=== PATIENT | female | born 1935 | race Caucasian/White ===

== ENCOUNTER 2016-11-25 12:12 | Emergency (ER) | payer OTHER ==
[~2016-11-25 12:12] MED LIST: ACCUPRIL40 MG PO; AMBIEN5 MG PO; AMLODIPINE BESYL5 MG PO; ASPIRIN EC325 MG PO; CALCIUM + D600 MG PO; COREG25 MG PO; COZAAR50 MG PO; DUONEB IN; HYDROCHLOROTHIA50 MG PO; LIPITOR40 MG PO; MULTIPLE VITAMIN PO; NEBULIZER IN; NORCO1 TA1 PO; O2 IN; TRAZODONE HCL50 MG PO; XALATAN0.005 % OP; ZANTAC 150 MAX150 MG PO; ZITHROMAX500 MG PO
--- NOTE | 2016-11-25 13:38 | DIAGNOSTIC IMAGING REPORT ---
PROCEDURE: XR CHEST 1 VIEW INDICATION: SHORTNESS OF BREATH TECHNIQUE: Portable AP view 12:49 p.m. COMPARISON: None. FINDINGS: Lungs are clear. Mild cardiomegaly. Thorax is normal. IMPRESSION: 1. Mild cardiomegaly. No acute infiltrates.
--- NOTE | 2016-11-25 15:23 | ED NURSING NOTES ---
Clinical Report - Nurses [facility] [address] [place] [address] 11/25/2016 12:13 Patient: ALEJANDRA DUNN TRIAGE Triage time 12:20. Acuity: LEVEL 3. Chief Complaint: (Light headed, Sob, lots of stress, family member dying at home.). Alert. No acute distress. BJ COMA SCORE: [place] Coma Scale: 15- eyes open spontaneously (4); best verbal response- oriented x 4 (5); best motor response- obeys commands (6). --12:33 Daina Isaac R.N. 12:20 11/25/16. BP: 157/56. HR: 74. RR: 19. O2 saturation: 95%. Temp: 98 F. Pain level now: 0/10. --12:33 Daina Isaac R.N. 12:20 11/25/16. BP: 157/56. HR: 74. RR: 19. O2 saturation: 95%. Temp: 98 F. Pain level now: 0/10. --12:35 Daina Isaac R.N. Weight: 67.1 kg stated. Height/Length: 64 inches Per Patient. BMI: 25.4. --12:31 Daina Isaac R.N. Medications AmLODIPine Besylate Oral 10 mg. Atorvastatin Calcium Oral 40 mg, at bedtime. Carvedilol Oral (Tablet 25 mg) 1 tablet, bid. Hydrocodone-Acetaminophen Oral 5 mg, 4x a day as needed. --12:24 Daina Isaac R.N. TraZODone HCl Oral 50-150mg at hs . --12:27 Daina Isaac R.N. Quinapril HCl Oral 40 mg, daily. --12:27 Daina Isaac R.N. Medication/allergy information source: the patient and patient's family. --12:33 Daina Isaac R.N. Allergies Penicillin. --12:24 Daina Isaac R.N. History Arrived by private vehicle. Historian: patient. Accompanied by family. Primary physician (leidy). Onset. (2 days ago). She has had weakness. 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 PAST MEDICAL HX: The patient is post-menopausal. SOCIAL HX: Smoker- current status unknown. Alcohol use; consumes one glass of wine. No drug use. FALL RISK ASSESSMENT: Fall risk assessment completed. No fall risk identified. NUTRITIONAL RISK ASSESSMENT: The nutritional risk assessment revealed no deficiencies. FUNCTIONAL ASSESSMENT: Functional assessment: no impairments noted. LEARNING NEEDS ASSESSMENT: The learning needs assessment revealed no barriers. SKIN INTEGRITY ASSESSMENT: Skin integrity risk assessment completed. No skin integrity risk identified. --12:33 Daina Isaac R.N. PROBLEMS: Dizzy. Heart rate 37. Hemorrhoids. Pneumonia. UTI - Urinary Tract Infection. Reflux. Sprain. Glaucoma. Hyperlipidemia. Tetanus Status. Acute Pain. Back Pain. Hypertension. Immunizations. --12:29 Daina Isaac R.N. ADDITIONAL SURGERIES: Ankle repair. Endartorectomy. --12:29 Daina Isaac R.N. Interventions ID band on patient. To room. --12:33 Daina Isaac R.N. PHYSICAL ASSESSMENT Ambulatory to room. Patient gowned. GENERAL / NEURO / PSYCH: Alert. Oriented X 4. Appears in no acute distress. HEENT: Mucous membranes are pink. RESPIRATORY: Respirations not labored. CVS: Cardiac rhythm: unifocal PVCs (72). Capillary refill less than 2 seconds. GI / : Abdomen nontender. SKIN: Skin intact. Skin is warm and dry. Normal skin turgor. --12:36 Daina Isaac R.N. NURSING PROGRESS NOTES nuclear monitoring technician, pulse oximeter and NIBP monitor placed on patient; manager cardiac- Lead II; monitor alarms on. Patient gowned. Head of bed elevated. Two patient identifiers checked. Call light placed in reach. Side rails up x 2. Bed placed in lowest position. Brakes of bed on. Patient ready for evaluation. --12:37 Daina Isaac R.N. EKG time: (1704). EKG was ordered, performed by a tech and shown to the ED physician. --12:58 Shawna Singer ER Tech1 13:00 11/25/2016 Site #1 started via IV in the right antecubital space with an 20g angiocath, with aseptic technique and good blood return; one attempt. Blood drawn: rainbow set. Labeled in the presence of the patient and sent to the lab. Saline lock flushed with 10 mL saline. --13:13 Daina Isaac R.N. 15:10 11/25/2016 Lasix IVP 20 mg given over 1 minute(s) via site #1. Allergies verified and confirmed 5 rights. IV patency established. IV site checked: no pain, redness, or swelling. IV flushed thoroughly pre- and post-medication administration. IVP given by RN. --16:13 Daina Isaac R.N. Locked/Released at 11/25/2016 17:13 by Daina Isaac R.N.
--- NOTE | 2016-11-25 15:23 | ED ORDER SUMMARY ---
..... Patient: ALEJANDRA DUNN OrderSheet [facility] VisitID: [id number] [place] [address] 81y, F Registration Date/Time: 11/25/2016 ORDER SHEET Weight: 67.1 kg (stated) Allergies: Penicillin GENERAL ORDERS: Chest 1V Urgent (12:48 11/25/2016 Rony MONIQUE) (Ack 12:57 SCouse ER Tech1) (13:14 SRoberts R.N.) Crystal Slicer (Continuous) (12:48 11/25/2016 Rony MONIQUE) (13:13 SRoberts R.N.) CBC w Diff Urgent (12:49 11/25/2016 Rony MONIQUE) (Ack 12:57 SCouse ER Tech1) (13:13 SRoberts R.N.) CMP Urgent (12:49 11/25/2016 Rony MONIQUE) (Ack 12:57 SCouse ER Tech1) (13:13 SRoberts R.N.) UA-Culture if indicated Urgent (12:49 11/25/2016 Rony MONIQUE) (Ack 12:57 [email or web address] ER Tech1) (15:09 SRoberts R.N.) PT with INR Urgent (12:49 11/25/2016 Rony MONIQUE) (Ack 12:57 SCouse ER Tech1) (13:13 SRoberts R.N.) PTT Urgent (12:49 11/25/2016 Rony MONIQUE) (Ack 12:57 [email or web address] ER [email or web address]) (13:13 SRoberts R.N.) Amylase Urgent (12:49 11/25/2016 Rony MONIQUE) (Ack 12:57 [email or web address] ER [email or web address]) (13:13 SRoberts R.N.) Lipase Urgent (12:49 11/25/2016 Rony MONIQUE) (Ack 12:57 SCouse ER TechCira) (13:13 SRoberts R.N.) CPK Urgent (12:49 11/25/2016 Rony MONIQUE) (Ack 12:57 SCouse ER Tech1) (13:13 SRoberts R.N.) Troponin-I Urgent (12:49 11/25/2016 Rony MONIQUE) (Ack 12:57 NHouse ER Tech1) (13:13 Shirley R.N.) TSH Urgent (12:49 11/25/2016 Rony MONIQUE) (Ack 12:57 NHouse ER Tech1) (13:13 Shirley R.N.) BNP Urgent (12:49 11/25/2016 Rony MONIQUE) (Ack 12:57 NHouse ER Tech1) (13:13 Shirley R.N.) Oxygen (2 L/min) (NC) (12:49 11/25/2016 Rony MONIQUE) (13:13 Shirley R.N.) Pulse oximeter (12:49 11/25/2016 Rony MONIQUE) (13:13 Shirley Stoner.N.) EKG - ER Stat (12:49 11/25/2016 Rony MONIQUE) (12:57 LNations ER Tech1) MEDICATION ORDERS: IV FLUIDS: IV Saline Lock (12:49 11/25/2016 Rony MONIQUE) (13:13 SRangel R.N.) Lasix IV 20 mg (NOW) (15:03 11/25/2016 Rony MONIQUE) (16:13 Shirley Stoner.Hoang) ORDER SHEET NOTES: [Electronically signed by Karlo Zambrano MD (16:45 11/25/2016)] [Electronically signed by Daina Isaac R.N. (17:13 11/25/2016)] [Electronically locked/signed by Daina Isaac R.N. (17:13 11/25/2016)]
--- NOTE | 2016-11-25 15:23 | ED ORDER SUMMARY ---
..... Patient: ALEJANDRA DUNN OrderSheet [facility] VisitID: [id number] [place] [address] 81y, F Registration Date/Time: 11/25/2016 ORDER SHEET Weight: 67.1 kg (stated) Allergies: Penicillin GENERAL ORDERS: Chest 1V Urgent (12:48 11/25/2016 Rony MONIQUE) (Ack 12:57 RIouse ER Tech1) (13:14 SRoberts R.N.) Composition Roll Maker And Cutter (Continuous) (12:48 11/25/2016 Rony MONIQUE) (13:13 SRoberts R.N.) CBC w Diff Urgent (12:49 11/25/2016 Rony MONIQUE) (Ack 12:57 RIouse ER Tech1) (13:13 SRoberts R.N.) CMP Urgent (12:49 11/25/2016 Rony MONIQUE) (Ack 12:57 RIouse ER Tech1) (13:13 SRoberts R.N.) UA-Culture if indicated Urgent (12:49 11/25/2016 Rony MONIQUE) (Ack 12:57 SABIAouse ER Tech1) (15:09 SRoberts R.N.) PT with INR Urgent (12:49 11/25/2016 Rony MONIQUE) (Ack 12:57 RIouse ER Tech1) (13:13 SRoberts R.N.) PTT Urgent (12:49 11/25/2016 Rony MONIQUE) (Ack 12:57 SABIAouse ER Tech1) (13:13 SRoberts R.N.) Amylase Urgent (12:49 11/25/2016 Rony MONIQUE) (Ack 12:57 SABIAouse ER Tech1) (13:13 SRoberts R.N.) Lipase Urgent (12:49 11/25/2016 Rony MONIQUE) (Ack 12:57 RIouse ER TechCira) (13:13 SRoberts R.N.) CPK Urgent (12:49 11/25/2016 Rony MONIQUE) (Ack 12:57 RIouse ER Tech1) (13:13 SRoberts R.N.) Troponin-I Urgent (12:49 11/25/2016 Rony MONIQUE) (Ack 12:57 NHouse ER Tech1) (13:13 Shirley R.N.) TSH Urgent (12:49 11/25/2016 Rony MONIQUE) (Ack 12:57 NHouse ER Tech1) (13:13 Shirley R.N.) BNP Urgent (12:49 11/25/2016 Rony MONIQUE) (Ack 12:57 NHouse ER Tech1) (13:13 Shirley R.N.) Oxygen (2 L/min) (NC) (12:49 11/25/2016 Rony MONIQUE) (13:13 Shirley R.N.) Pulse oximeter (12:49 11/25/2016 Rony MONIQUE) (13:13 Shirley Stoner.N.) EKG - ER Stat (12:49 11/25/2016 Rony MONIQUE) (12:57 LNations ER Tech1) MEDICATION ORDERS: IV FLUIDS: IV Saline Lock (12:49 11/25/2016 Rony MONIQUE) (13:13 SRangel R.N.) Lasix IV 20 mg (NOW) (15:03 11/25/2016 Rony MONIQUE) (16:13 Shirley Stoner.Hoang) ORDER SHEET NOTES: [Electronically signed by Karlo Zambrano MD (16:45 11/25/2016)] [Electronically signed by Daina Isaac R.N. (17:13 11/25/2016)] [Electronically locked/signed by Daina Isaac R.N. (17:13 11/25/2016)]
--- NOTE | 2016-11-25 15:23 | ED CLINICAL REPORT ---
Clinical Report - Physicians/Mid Levels [facility] [address] [place] [address] 11/25/2016 12:13 Patient: ALEJANDRA DUNN Time Seen: 12:50. Arrived- By private vehicle. Historian- patient. HISTORY OF PRESENT ILLNESS Chief Complaint: DYSPNEA and low heart rate. This started today and is now gone. It was abrupt in onset and has been intermittent. The dyspnea is described as moderate. The patient has had a cough and dyspnea on exertion. She has had moderate amounts of thick, clear sputum. No sweating episodes, wheezing, chills, calf pain or orthopnea. She has had mild right and left foot swelling. REVIEW OF SYSTEMS No calf pain, chest pain, pedal edema or palpitations. She has had dizziness. All systems otherwise negative, except as recorded above. PAST HISTORY Problems: Dizzy. Heart rate 37. Hemorrhoids. Pneumonia. UTI - Urinary Tract Infection. Reflux. Sprain. Glaucoma. Hyperlipidemia. Tetanus Status. Acute Pain. Back Pain. Hypertension. Additional Surgeries: Ankle repair. Endartorectomy. Medications: Quinapril HCl Oral 40 mg, daily. TraZODone HCl Oral 50-150mg at hs . AmLODIPine Besylate Oral 10 mg. Atorvastatin Calcium Oral 40 mg, at bedtime. Carvedilol Oral (Tablet 25 mg) 1 tablet, bid. Hydrocodone-Acetaminophen Oral 5 mg, 4x a day as needed. Allergies: Penicillin. SOCIAL HISTORY Smoker- current status unknown. ADDITIONAL NOTES The nursing notes have been reviewed. PHYSICAL EXAM Vital Signs: 11/25/2016 12:20 BP: 157/56. HR: 74. RR: 19. O2 saturation: 95%. Temp: 98 F. Pain level now: 0/10. Appearance: Alert. Anxious. Eyes: Pupils equal, round and reactive to light. ENT: Pharynx normal. Neck: No jugular venous distention. CVS: Normal heart rate and rhythm. Heart sounds normal. Respiratory: No respiratory distress. Breath sounds normal. Abdomen: Soft and nontender. No organomegaly. Back: Normal inspection. Skin: Skin warm and dry. Normal skin color. Normal skin turgor. Extremities: Extremities exhibit normal ROM. No calf tenderness. No lower extremity edema. LABS, X-RAYS, AND EKG EKG: Rate: 74. Ectopic beats (bigeminy). Premature ventricular contractions. Changes present when compared to prior EKG. (02 Nov 2016). The study has been independently viewed by me. Chest X-ray: (IMPRESSION: 1. Mild cardiomegaly. No acute infiltrates.). The X-rays were interpreted by the radiologist and contemporaneously by me. Laboratory Tests: UA-Culture if indicated: (HERLINDA: 11/25/2016 14:30) ( [facility] 11/25/2016 14:58) Final results Test Result Flag Units (Reference) URINE COLOR YELLOW URINE APPEARANCE CLEAR URINE GLUCOSE NEGATIVE (NEGATIVE) URINE BILIRUBIN NEGATIVE (NEGATIVE) URINE KETONE NEGATIVE (NEGATIVE) URINE SPECIFIC GRAVITY 1.025 (1.010-1.030) URINE PH 6.5 (5.0-8.0) URINE PROTEIN 2+ (NEGATIVE) URINE UROBILINOGEN 0.2 EU/dL (0.2-1.0) URINE NITRITE NEGATIVE (NEGATIVE) URINE BLOOD NEGATIVE (NEGATIVE) URINE LEUK ESTERASE NEGATIVE (NEGATIVE) URINE RBC NONE SEEN rbc/hpf (0-1) URINE WBC 0-1 wbc/hpf (0-1) URINE EPITHELIAL CELLS 3-5 EPI/hpf (0-5) 2+ MUCOUSHYALINE CASTS 5-10/LPF URINE BACTERIA TRACE (<1+) (NONE SEEN) URINE COMMENT CULT NOT INDICATED URINE CULTURES ARE SET-UP BASED ON THE FOLLOWING CRITERIA:POSITIVE NITRITEPOSITIVE LEUKOCYTE ESTERASEGREATER THAN 10 WHITE BLOOD CELLSMODERATE (2+) OR GREATER BACTERIA CBC w Diff: (HERLINDA: 11/25/2016 12:50) ( [facility] 11/25/2016 13:20) Final results Test Result Flag Units (Reference) WHITE BLOOD COUNT 10.1 K/uL (4.5-11.5) RED BLOOD COUNT 4.84 M/uL (4.00-5.20) HEMOGLOBIN 14.6 gm/dL (12.0-16.0) HEMATOCRIT 42.2 % (36.0-46.0) MEAN CELL VOLUME 87 fL (80-100) MEAN CORPUSCULAR HGB 30 pg (26-34) MEAN CORPUSCULAR HGB CONC 35 g/dL (31-37) RED CELL DISTRIBUTION WIDTH 15.5 H % (11.6-14.8) PLATELET COUNT 181 K/uL (150-400) LYMPH % 22.1 L % (25-40) MONO % 4.4 % (3-14) GRANULOCYTE % 73.5 (53-90) PT with INR: (HERLINDA: 11/25/2016 12:50) ( [facility] 11/25/2016 14:18) Final results Test Result Flag Units (Reference) INR 0.9 (0.8-1.2) Low Intensity Therapy: INR 1.5-2.0 PT range 18.5-23.1Mod.Intensity Therapy: INR 2.0-3.0 PT range 23.1-31.5High Intensity Therapy: INR 2.5-3.5 PT range 27.4-35.5High Intensity Therapy 2: INR 3.0-4.0 PT range 31.5-39.3 APTT 25 SECONDS (24-34) BNP: (HERLINDA: 11/25/2016 12:50) ( [facility] 11/25/2016 13:32) Final results Test Result Flag Units (Reference) B-TYPE NATRIURETIC PEPTIDE 581 H pg/ml (5-100) CMP: (HERLINDA: 11/25/2016 12:50) ( NegRcvd 11/25/2016 14:33) Final results Test Result Flag Units (Reference) GLUCOSE 107 mg/dL (70-110) BUN 17 mg/dL (7-18) CREATININE 1.1 mg/dL (0.6-1.3) Estimated GFR 50.79 mL/min Estimated GFR- >60 mL/min Note: Persistent reduction over 3 months in eGFR<60 mL/min/1.73 m2 defines CKD. Patients with eGFR values>=60 mL/min/1.73 m2 may also have CKD if evidence ofpersistent proteinuria. Additional information may be foundat www.kidney.org. SODIUM 145 mmol/L (136-145) POTASSIUM 4.0 mmol/L (3.5-5.1) CHLORIDE 106 mmol/L (98-107) CARBON DIOXIDE 27 mmol/L (21-32) CALCIUM 10.0 mg/dL (8.5-10.1) TOTAL PROTEIN 7.5 g/dL (6.4-8.2) ALBUMIN 4.1 g/dL (3.3-5.0) BILIRUBIN, TOTAL 0.6 mg/dL (0.0-1.0) ALKALINE PHOSPHATASE 79 U/L (46-116) AST (SGOT) 18 U/L (15-37) ALT (SGPT) 18 U/L (12-78) LIPASE 132 U/L (73-393) AMYLASE 81 U/L (25-115) CPK 73 U/L (24-260) TROPONIN I 0.05 ng/mL (0.00-1.5) TROPONIN REFERENCE RANGE:<0.1 NEGATIVE0.1-1.5 INDETERMINANT>1.5 POSITIVE THYROID STIMULATING HORMONE 1.054 uIU/mL (0.30-3.74) . PROGRESS AND PROCEDURES Course of Care: Patient is stable. Discussed case with patient's primary care provider, (Mamadou). Reviewed test results and need for additional work-up. Agreed upon treatment plan and need for patient follow-up. Health care provider will see patient in hospital. Patient/family counseled. Old medical records reviewed. Disposition: Discharged. Condition: stable. CLINICAL IMPRESSION Chronic congestive heart failure. Premature ventricular contractions. INSTRUCTIONS Warnings: Further evaluation is necessary. GENERAL WARNINGS: Return or contact your physician immediately if your condition worsens or changes unexpectedly, if not improving as expected, or if other problems arise. Your Current Medications: CONTINUE TAKING THE FOLLOWING MEDICATIONS: AmLODIPine Besylate Oral : 10 mg. Atorvastatin Calcium Oral : 40 mg at bedtime. Carvedilol Oral : Tablet 25 mg, 1 tablet bid. Hydrocodone-Acetaminophen Oral : 5 mg 4x a day, prn. Quinapril HCl Oral : 40 mg daily. TraZODone HCl Oral : 50-150mg at hs. Follow-up: Follow up with a lugger- as recommended by your primary care physician. Understanding of the discharge instructions verbalized by patient and family. Follow-up with: Dominic Cedillo MD, [facility], , [facility], [address] [place] [address], [phone] Follow up in seven days. Call for an appointment. (Electronically signed by Karlo Zambrano MD 11/25/2016 16:45)
--- NOTE | 2016-11-25 15:23 | ED NURSING NOTES ---
Clinical Report - Nurses [facility] [address] [place] [address] 11/25/2016 12:13 Patient: ALEJANDRA DUNN TRIAGE Triage time 12:20. Acuity: LEVEL 3. Chief Complaint: (Light headed, Sob, lots of stress, family member dying at home.). Alert. No acute distress. BJ COMA SCORE: [place] Coma Scale: 15- eyes open spontaneously (4); best verbal response- oriented x 4 (5); best motor response- obeys commands (6). --12:33 Daina Isaac R.N. 12:20 11/25/16. BP: 157/56. HR: 74. RR: 19. O2 saturation: 95%. Temp: 98 F. Pain level now: 0/10. --12:33 Daina Isaac R.N. 12:20 11/25/16. BP: 157/56. HR: 74. RR: 19. O2 saturation: 95%. Temp: 98 F. Pain level now: 0/10. --12:35 Dania Isaac R.N. Weight: 67.1 kg stated. Height/Length: 64 inches Per Patient. BMI: 25.4. --12:31 Daina Isaac R.N. Medications AmLODIPine Besylate Oral 10 mg. Atorvastatin Calcium Oral 40 mg, at bedtime. Carvedilol Oral (Tablet 25 mg) 1 tablet, bid. Hydrocodone-Acetaminophen Oral 5 mg, 4x a day as needed. --12:24 Daina Isaac R.N. TraZODone HCl Oral 50-150mg at hs . --12:27 Daina Isaac R.N. Quinapril HCl Oral 40 mg, daily. --12:27 Daina Isaac R.N. Medication/allergy information source: the patient and patient's family. --12:33 Daina Isaac R.N. Allergies Penicillin. --12:24 Daina Isaac R.N. History Arrived by private vehicle. Historian: patient. Accompanied by family. Primary physician (leidy). Onset. (2 days ago). She has had weakness. 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 PAST MEDICAL HX: The patient is post-menopausal. SOCIAL HX: Smoker- current status unknown. Alcohol use; consumes one glass of wine. No drug use. FALL RISK ASSESSMENT: Fall risk assessment completed. No fall risk identified. NUTRITIONAL RISK ASSESSMENT: The nutritional risk assessment revealed no deficiencies. FUNCTIONAL ASSESSMENT: Functional assessment: no impairments noted. LEARNING NEEDS ASSESSMENT: The learning needs assessment revealed no barriers. SKIN INTEGRITY ASSESSMENT: Skin integrity risk assessment completed. No skin integrity risk identified. --12:33 Daina Isaac R.N. PROBLEMS: Dizzy. Heart rate 37. Hemorrhoids. Pneumonia. UTI - Urinary Tract Infection. Reflux. Sprain. Glaucoma. Hyperlipidemia. Tetanus Status. Acute Pain. Back Pain. Hypertension. Immunizations. --12:29 Daina Isaac R.N. ADDITIONAL SURGERIES: Ankle repair. Endartorectomy. --12:29 Daina Isaac R.N. Interventions ID band on patient. To room. --12:33 Daina Isaac R.N. PHYSICAL ASSESSMENT Ambulatory to room. Patient gowned. GENERAL / NEURO / PSYCH: Alert. Oriented X 4. Appears in no acute distress. HEENT: Mucous membranes are pink. RESPIRATORY: Respirations not labored. CVS: Cardiac rhythm: unifocal PVCs (72). Capillary refill less than 2 seconds. GI / : Abdomen nontender. SKIN: Skin intact. Skin is warm and dry. Normal skin turgor. --12:36 Daina Isaac R.N. NURSING PROGRESS NOTES lunchroom monitor, pulse oximeter and NIBP monitor placed on patient; electronic device monitor- Lead II; monitor alarms on. Patient gowned. Head of bed elevated. Two patient identifiers checked. Call light placed in reach. Side rails up x 2. Bed placed in lowest position. Brakes of bed on. Patient ready for evaluation. --12:37 Daina Isaac R.N. EKG time: (3314). EKG was ordered, performed by a tech and shown to the ED physician. --12:58 Shawna Singer ER Tech1 13:00 11/25/2016 Site #1 started via IV in the right antecubital space with an 20g angiocath, with aseptic technique and good blood return; one attempt. Blood drawn: rainbow set. Labeled in the presence of the patient and sent to the lab. Saline lock flushed with 10 mL saline. --13:13 Daina Isaac R.N. 15:10 11/25/2016 Lasix IVP 20 mg given over 1 minute(s) via site #1. Allergies verified and confirmed 5 rights. IV patency established. IV site checked: no pain, redness, or swelling. IV flushed thoroughly pre- and post-medication administration. IVP given by RN. --16:13 Daina Isaac R.N. Locked/Released at 11/25/2016 17:13 by Daina Isaac R.N.
--- NOTE | 2016-11-25 15:23 | ED CLINICAL REPORT ---
Clinical Report - Physicians/Mid Levels [facility] [address] [place] [address] 11/25/2016 12:13 Patient: ALEJANDRA DUNN Time Seen: 12:50. Arrived- By private vehicle. Historian- patient. HISTORY OF PRESENT ILLNESS Chief Complaint: DYSPNEA and low heart rate. This started today and is now gone. It was abrupt in onset and has been intermittent. The dyspnea is described as moderate. The patient has had a cough and dyspnea on exertion. She has had moderate amounts of thick, clear sputum. No sweating episodes, wheezing, chills, calf pain or orthopnea. She has had mild right and left foot swelling. REVIEW OF SYSTEMS No calf pain, chest pain, pedal edema or palpitations. She has had dizziness. All systems otherwise negative, except as recorded above. PAST HISTORY Problems: Dizzy. Heart rate 37. Hemorrhoids. Pneumonia. UTI - Urinary Tract Infection. Reflux. Sprain. Glaucoma. Hyperlipidemia. Tetanus Status. Acute Pain. Back Pain. Hypertension. Additional Surgeries: Ankle repair. Endartorectomy. Medications: Quinapril HCl Oral 40 mg, daily. TraZODone HCl Oral 50-150mg at hs . AmLODIPine Besylate Oral 10 mg. Atorvastatin Calcium Oral 40 mg, at bedtime. Carvedilol Oral (Tablet 25 mg) 1 tablet, bid. Hydrocodone-Acetaminophen Oral 5 mg, 4x a day as needed. Allergies: Penicillin. SOCIAL HISTORY Smoker- current status unknown. ADDITIONAL NOTES The nursing notes have been reviewed. PHYSICAL EXAM Vital Signs: 11/25/2016 12:20 BP: 157/56. HR: 74. RR: 19. O2 saturation: 95%. Temp: 98 F. Pain level now: 0/10. Appearance: Alert. Anxious. Eyes: Pupils equal, round and reactive to light. ENT: Pharynx normal. Neck: No jugular venous distention. CVS: Normal heart rate and rhythm. Heart sounds normal. Respiratory: No respiratory distress. Breath sounds normal. Abdomen: Soft and nontender. No organomegaly. Back: Normal inspection. Skin: Skin warm and dry. Normal skin color. Normal skin turgor. Extremities: Extremities exhibit normal ROM. No calf tenderness. No lower extremity edema. LABS, X-RAYS, AND EKG EKG: Rate: 74. Ectopic beats (bigeminy). Premature ventricular contractions. Changes present when compared to prior EKG. (02 Nov 2016). The study has been independently viewed by me. Chest X-ray: (IMPRESSION: 1. Mild cardiomegaly. No acute infiltrates.). The X-rays were interpreted by the radiologist and contemporaneously by me. Laboratory Tests: UA-Culture if indicated: (HERLINDA: 11/25/2016 14:30) ( [facility] 11/25/2016 14:58) Final results Test Result Flag Units (Reference) URINE COLOR YELLOW URINE APPEARANCE CLEAR URINE GLUCOSE NEGATIVE (NEGATIVE) URINE BILIRUBIN NEGATIVE (NEGATIVE) URINE KETONE NEGATIVE (NEGATIVE) URINE SPECIFIC GRAVITY 1.025 (1.010-1.030) URINE PH 6.5 (5.0-8.0) URINE PROTEIN 2+ (NEGATIVE) URINE UROBILINOGEN 0.2 EU/dL (0.2-1.0) URINE NITRITE NEGATIVE (NEGATIVE) URINE BLOOD NEGATIVE (NEGATIVE) URINE LEUK ESTERASE NEGATIVE (NEGATIVE) URINE RBC NONE SEEN rbc/hpf (0-1) URINE WBC 0-1 wbc/hpf (0-1) URINE EPITHELIAL CELLS 3-5 EPI/hpf (0-5) 2+ MUCOUSHYALINE CASTS 5-10/LPF URINE BACTERIA TRACE (<1+) (NONE SEEN) URINE COMMENT CULT NOT INDICATED URINE CULTURES ARE SET-UP BASED ON THE FOLLOWING CRITERIA:POSITIVE NITRITEPOSITIVE LEUKOCYTE ESTERASEGREATER THAN 10 WHITE BLOOD CELLSMODERATE (2+) OR GREATER BACTERIA CBC w Diff: (HERLINDA: 11/25/2016 12:50) ( [facility] 11/25/2016 13:20) Final results Test Result Flag Units (Reference) WHITE BLOOD COUNT 10.1 K/uL (4.5-11.5) RED BLOOD COUNT 4.84 M/uL (4.00-5.20) HEMOGLOBIN 14.6 gm/dL (12.0-16.0) HEMATOCRIT 42.2 % (36.0-46.0) MEAN CELL VOLUME 87 fL (80-100) MEAN CORPUSCULAR HGB 30 pg (26-34) MEAN CORPUSCULAR HGB CONC 35 g/dL (31-37) RED CELL DISTRIBUTION WIDTH 15.5 H % (11.6-14.8) PLATELET COUNT 181 K/uL (150-400) LYMPH % 22.1 L % (25-40) MONO % 4.4 % (3-14) GRANULOCYTE % 73.5 (53-90) PT with INR: (HERLINDA: 11/25/2016 12:50) ( [facility] 11/25/2016 14:18) Final results Test Result Flag Units (Reference) INR 0.9 (0.8-1.2) Low Intensity Therapy: INR 1.5-2.0 PT range 18.5-23.1Mod.Intensity Therapy: INR 2.0-3.0 PT range 23.1-31.5High Intensity Therapy: INR 2.5-3.5 PT range 27.4-35.5High Intensity Therapy 2: INR 3.0-4.0 PT range 31.5-39.3 APTT 25 SECONDS (24-34) BNP: (HERLINDA: 11/25/2016 12:50) ( [facility] 11/25/2016 13:32) Final results Test Result Flag Units (Reference) B-TYPE NATRIURETIC PEPTIDE 581 H pg/ml (5-100) CMP: (HERLINDA: 11/25/2016 12:50) ( [facility] 11/25/2016 14:33) Final results Test Result Flag Units (Reference) GLUCOSE 107 mg/dL (70-110) BUN 17 mg/dL (7-18) CREATININE 1.1 mg/dL (0.6-1.3) Estimated GFR 50.79 mL/min Estimated GFR- >60 mL/min Note: Persistent reduction over 3 months in eGFR<60 mL/min/1.73 m2 defines CKD. Patients with eGFR values>=60 mL/min/1.73 m2 may also have CKD if evidence ofpersistent proteinuria. Additional information may be foundat www.kidney.org. SODIUM 145 mmol/L (136-145) POTASSIUM 4.0 mmol/L (3.5-5.1) CHLORIDE 106 mmol/L (98-107) CARBON DIOXIDE 27 mmol/L (21-32) CALCIUM 10.0 mg/dL (8.5-10.1) TOTAL PROTEIN 7.5 g/dL (6.4-8.2) ALBUMIN 4.1 g/dL (3.3-5.0) BILIRUBIN, TOTAL 0.6 mg/dL (0.0-1.0) ALKALINE PHOSPHATASE 79 U/L (46-116) AST (SGOT) 18 U/L (15-37) ALT (SGPT) 18 U/L (12-78) LIPASE 132 U/L (73-393) AMYLASE 81 U/L (25-115) CPK 73 U/L (24-260) TROPONIN I 0.05 ng/mL (0.00-1.5) TROPONIN REFERENCE RANGE:<0.1 NEGATIVE0.1-1.5 INDETERMINANT>1.5 POSITIVE THYROID STIMULATING HORMONE 1.054 uIU/mL (0.30-3.74) . PROGRESS AND PROCEDURES Course of Care: Patient is stable. Discussed case with patient's primary care provider, (Mamadou). Reviewed test results and need for additional work-up. Agreed upon treatment plan and need for patient follow-up. Health care provider will see patient in hospital. Patient/family counseled. Old medical records reviewed. Disposition: Discharged. Condition: stable. CLINICAL IMPRESSION Chronic congestive heart failure. Premature ventricular contractions. INSTRUCTIONS Warnings: Further evaluation is necessary. GENERAL WARNINGS: Return or contact your physician immediately if your condition worsens or changes unexpectedly, if not improving as expected, or if other problems arise. Your Current Medications: CONTINUE TAKING THE FOLLOWING MEDICATIONS: AmLODIPine Besylate Oral : 10 mg. Atorvastatin Calcium Oral : 40 mg at bedtime. Carvedilol Oral : Tablet 25 mg, 1 tablet bid. Hydrocodone-Acetaminophen Oral : 5 mg 4x a day, prn. Quinapril HCl Oral : 40 mg daily. TraZODone HCl Oral : 50-150mg at hs. Follow-up: Follow up with a bark fitter- as recommended by your primary care physician. Understanding of the discharge instructions verbalized by patient and family. Follow-up with: Dominic Cedillo MD, [facility], , [facility], [address] [place] [address], [id number] Follow up in seven days. Call for an appointment. (Electronically signed by Karlo Zambrano MD 11/25/2016 16:45)
--- NOTE | 2016-11-25 17:13 | ED MED RECONCILIATION SUMMARY ---
Patient: AELJANDRA DUNN Medication Reconciliation Report [facility] VisitID: [id number] [address] [place] [address] 81y, F Registration Date/Time: 11/25/2016 Weight: 67.1 kg Height/Length: 64 in. BMI: 25.4 ALLERGIES: Penicillin The patient's Home Medications are listed below: CONTINUE TAKING THE FOLLOWING MEDICATIONS: AmLODIPine Besylate Oral 10 mg Atorvastatin Calcium Oral 40 mg, at bedtime Carvedilol Oral (25 mg) 1 tablet, bid Hydrocodone-Acetaminophen Oral 5 mg, 4x a day Quinapril HCl Oral 40 mg, daily TraZODone HCl Oral 50-150mg at hs The source(s) of the original Home Medication information: patient's family member patient The following Medications were given to the patient in the Emergency Department: Lasix [IVP] IVP 20 mg, administered: 11/25/2016 3:10:00 PM The following Medications were prescribed to the patient: None.
--- NOTE | 2016-11-25 17:13 | ED DISCHARGE INSTRUCTIONS ---
Patient: ALEJANDRA DUNN General Instructions [facility] VisitID: [id number] [place] [address] 81y, F Registration Date/Time: 11/25/2016 Chronic congestive heart failure. Premature ventricular contractions. INSTRUCTIONS Warnings: Further evaluation is necessary. GENERAL WARNINGS: Return or contact your physician immediately if your condition worsens or changes unexpectedly, if not improving as expected, or if other problems arise. Your Current Medications: CONTINUE TAKING THE FOLLOWING MEDICATIONS: AmLODIPine Besylate Oral : 10 mg. Atorvastatin Calcium Oral : 40 mg at bedtime. Carvedilol Oral : Tablet 25 mg, 1 tablet bid. Hydrocodone-Acetaminophen Oral : 5 mg 4x a day, prn. Quinapril HCl Oral : 40 mg daily. TraZODone HCl Oral : 50-150mg at hs. Follow-up: Follow up with a asic design engineer- as recommended by your primary care physician. Understanding of the discharge instructions verbalized by patient and family. Follow-up with: Dominic Cedillo MD, [facility], [facility], [address] [place], [place] [address] [place] [address] Follow up in seven days. Call for an appointment. ADDITIONAL INFORMATION Arrhythmia Electrical impulses cause the normal heart to beat 60 to 100 times a minute. These impulses come from a natural pacemaker deep inside the heart muscle. Each impulse causes the heart muscle to contract. This causes the blood to flow through the heart and out to the tissues and organs of your body. An arrhythmia is a change from the normal speed or pattern of these electrical impulses. This can cause the heart to beat too fast (tachycardia); or too slow (bradycardia); or in an unsteady pattern (irregular rhythm). Symptoms of arrhythmias Different people experience arrhythmias differently. Sometimes they may not have symptoms, but just notice a change in their pulse. Symptoms can include: Fluttering feeling in the chest Shortness of breath Chest pain or pressure Lightheadedness or dizziness Fainting or nearly fainting Palpitations Tiredness, fatigue, or weakness Causes of arrhythmias Arrhythmias are most often due to heart disease such as: Coronary artery disease (arteriosclerosis) Disease of the heart valves Enlarged heart High blood pressure Heart failure Other causes ofarrhythmia include: Certain medicines (such as asthma inhalers and decongestants) Some herbal supplements Cardiac stimulant drugs (such as cocaine, amphetamine, diet pills, certain decongestant cold medicines, caffeine, and nicotine) Excessive alcohol use Medical conditions such as thyroid disease, anemia, anxiety, and panic disorder Arrythmias can often be prevented. The cause and type of arrhythmia determines the best treatment. Sometimes your doctor may want to monitor your heart rate over a 24-hour period or longer. This can help identify the cause of your arrhythmia and find the best treatment. This can be done with a Holter monitor,a portable EKG recording device attached by wires to your chest. You can carry this with you as you perform your routine activities during the monitoring period. Home care Avoid cardiac stimulants (such as cocaine, amphetamine, diet pills, certain decongestant cold medicines, caffeine, and nicotine). If you smoke, stop smoking. Contact your doctor or a local stop-smoking program for help. Tell your doctor about any prescription, pego-fap-awsodim or herbal medicines you take. These may be affecting your heart rhythm. Follow-up care Follow up with your health care provider or as advised by our staff. If a Holter monitor has been recommended, contact the cardiologistyou have been referred toas soon as you canpick up the device. Other outpatient tests may also be arranged for you at that time. Call 911 This is the fastest and safest way to get to the emergency department. The paramedics can also start treatment on the way to the hospital, if needed. Don'twait until your symptoms are severe to call 911. Other reasons to call 911 besides chest pain include: Chest, shoulder, arm, neck, or back pain Shortness of breath Feeling lightheaded, faint, or dizzy Rapid heart beat Slower than usual heart rate compared to your normal Angina withweakness, dizziness, fainting, heavy sweating, nausea, or vomiting Extreme drowsiness, or confusion Weakness of an arm or leg or one side of the face Difficulty with speech or vision When to seek medical care Remember, things are not always like they are on TV. Sometimes it is not so obvious. You may only feel weak or just "not right." If it is not clear or if you have any doubt, call for advice. Seek help for chest pain, or it feels different from usual, even if your symptoms are mild. Do not drive yourself. Have someone else drive. If no one can drive you, call 911. If your doctor has given you medicines to take when you have symptoms, take them, but do not delay getting help while trying to find them. Do not delay. Fast diagnosis and treatment can prevent or limit the amount of heart damage during a heart attack or stroke. Do not go to your doctor's ofice or a clinic because they will not be able to provide all of the testing or treatment required for this condition. You have been given the following additional information: Arrhythmia, Unspecified (Electronically signed by Karlo Zambrano MD 11/25/2016 16:45)
--- NOTE | 2016-11-25 17:13 | ED MED RECONCILIATION SUMMARY ---
Patient: ALEJANDRA DUNN Medication Reconciliation Report [facility] VisitID: [id number] [address] [place] [address] 81y, F Registration Date/Time: 11/25/2016 Weight: 67.1 kg Height/Length: 64 in. BMI: 25.4 ALLERGIES: Penicillin The patient's Home Medications are listed below: CONTINUE TAKING THE FOLLOWING MEDICATIONS: AmLODIPine Besylate Oral 10 mg Atorvastatin Calcium Oral 40 mg, at bedtime Carvedilol Oral (25 mg) 1 tablet, bid Hydrocodone-Acetaminophen Oral 5 mg, 4x a day Quinapril HCl Oral 40 mg, daily TraZODone HCl Oral 50-150mg at hs The source(s) of the original Home Medication information: patient's family member patient The following Medications were given to the patient in the Emergency Department: Lasix [IVP] IVP 20 mg, administered: 11/25/2016 3:10:00 PM The following Medications were prescribed to the patient: None.
--- NOTE | 2016-11-25 17:13 | ED DISCHARGE INSTRUCTIONS ---
Patient: ALEJANDRA DUNN General Instructions [facility] VisitID: [id number] [place] [address] 81y, F Registration Date/Time: 11/25/2016 Chronic congestive heart failure. Premature ventricular contractions. INSTRUCTIONS Warnings: Further evaluation is necessary. GENERAL WARNINGS: Return or contact your physician immediately if your condition worsens or changes unexpectedly, if not improving as expected, or if other problems arise. Your Current Medications: CONTINUE TAKING THE FOLLOWING MEDICATIONS: AmLODIPine Besylate Oral : 10 mg. Atorvastatin Calcium Oral : 40 mg at bedtime. Carvedilol Oral : Tablet 25 mg, 1 tablet bid. Hydrocodone-Acetaminophen Oral : 5 mg 4x a day, prn. Quinapril HCl Oral : 40 mg daily. TraZODone HCl Oral : 50-150mg at hs. Follow-up: Follow up with a jacquard loom weaver- as recommended by your primary care physician. Understanding of the discharge instructions verbalized by patient and family. Follow-up with: Dominic Cedillo MD, [facility], [facility], [address] [place], [place] [address] [place] [address] Follow up in seven days. Call for an appointment. ADDITIONAL INFORMATION Arrhythmia Electrical impulses cause the normal heart to beat 60 to 100 times a minute. These impulses come from a natural pacemaker deep inside the heart muscle. Each impulse causes the heart muscle to contract. This causes the blood to flow through the heart and out to the tissues and organs of your body. An arrhythmia is a change from the normal speed or pattern of these electrical impulses. This can cause the heart to beat too fast (tachycardia); or too slow (bradycardia); or in an unsteady pattern (irregular rhythm). Symptoms of arrhythmias Different people experience arrhythmias differently. Sometimes they may not have symptoms, but just notice a change in their pulse. Symptoms can include: Fluttering feeling in the chest Shortness of breath Chest pain or pressure Lightheadedness or dizziness Fainting or nearly fainting Palpitations Tiredness, fatigue, or weakness Causes of arrhythmias Arrhythmias are most often due to heart disease such as: Coronary artery disease (arteriosclerosis) Disease of the heart valves Enlarged heart High blood pressure Heart failure Other causes ofarrhythmia include: Certain medicines (such as asthma inhalers and decongestants) Some herbal supplements Cardiac stimulant drugs (such as cocaine, amphetamine, diet pills, certain decongestant cold medicines, caffeine, and nicotine) Excessive alcohol use Medical conditions such as thyroid disease, anemia, anxiety, and panic disorder Arrythmias can often be prevented. The cause and type of arrhythmia determines the best treatment. Sometimes your doctor may want to monitor your heart rate over a 24-hour period or longer. This can help identify the cause of your arrhythmia and find the best treatment. This can be done with a Holter monitor,a portable EKG recording device attached by wires to your chest. You can carry this with you as you perform your routine activities during the monitoring period. Home care Avoid cardiac stimulants (such as cocaine, amphetamine, diet pills, certain decongestant cold medicines, caffeine, and nicotine). If you smoke, stop smoking. Contact your doctor or a local stop-smoking program for help. Tell your doctor about any prescription, nedw-het-thepcao or herbal medicines you take. These may be affecting your heart rhythm. Follow-up care Follow up with your health care provider or as advised by our staff. If a Holter monitor has been recommended, contact the cardiologistyou have been referred toas soon as you canpick up the device. Other outpatient tests may also be arranged for you at that time. Call 911 This is the fastest and safest way to get to the emergency department. The paramedics can also start treatment on the way to the hospital, if needed. Don'twait until your symptoms are severe to call 911. Other reasons to call 911 besides chest pain include: Chest, shoulder, arm, neck, or back pain Shortness of breath Feeling lightheaded, faint, or dizzy Rapid heart beat Slower than usual heart rate compared to your normal Angina withweakness, dizziness, fainting, heavy sweating, nausea, or vomiting Extreme drowsiness, or confusion Weakness of an arm or leg or one side of the face Difficulty with speech or vision When to seek medical care Remember, things are not always like they are on TV. Sometimes it is not so obvious. You may only feel weak or just "not right." If it is not clear or if you have any doubt, call for advice. Seek help for chest pain, or it feels different from usual, even if your symptoms are mild. Do not drive yourself. Have someone else drive. If no one can drive you, call 911. If your doctor has given you medicines to take when you have symptoms, take them, but do not delay getting help while trying to find them. Do not delay. Fast diagnosis and treatment can prevent or limit the amount of heart damage during a heart attack or stroke. Do not go to your doctor's ofice or a clinic because they will not be able to provide all of the testing or treatment required for this condition. You have been given the following additional information: Arrhythmia, Unspecified (Electronically signed by Karlo Zambrano MD 11/25/2016 16:45)
--- NOTE | 2016-11-25 17:13 | ED MAR SUMMARY ---
..... Medication Administration Record [facility] [address] [place] [address] Patient: ALEJANDRA DUNN Visit ID: [id number] 81y, F Weight: 67.1 kg Height/Length: 64 in BMI: 25.4 ALLERGIES: Penicillin Given 15:10 11/25/2016 Daina Isaac R.N. Medication Administered: LASIX [IVP], Dose: 20 mg IVP over 1 minute(s), Site: #1 right AC. Medication Ordered: Lasix IV 20 mg (NOW).
--- NOTE | 2016-11-25 17:13 | ED MAR SUMMARY ---
..... Medication Administration Record [facility] [address] [place] [address] Patient: ALEJANDRA DUNN Visit ID: [id number] 81y, F Weight: 67.1 kg Height/Length: 64 in BMI: 25.4 ALLERGIES: Penicillin Given 15:10 11/25/2016 Daina Isaac R.N. Medication Administered: LASIX [IVP], Dose: 20 mg IVP over 1 minute(s), Site: #1 right AC. Medication Ordered: Lasix IV 20 mg (NOW).
== END 2016-11-25 16:10 | disposition home or self-care (01) ==
LOC: ED SRH 12:12
DX: I50.9 Heart failure, unspecified (principal); I11.0 Hypertensive heart disease with heart failure; I49.3 Ventricular premature depolarization; F17.200 Nicotine dependence, unspecified, uncomplicated; Z88.0 Allergy status to penicillin; Z79.899 Other long term (current) drug therapy
CPT/HCPCS: 90004; 90100; 90616; 91320; 92235; 92530; 92610; 93140; 94001; 94060; 95059

== ENCOUNTER 2017-01-05 16:37 | Emergency (ER) | payer OTHER ==
--- NOTE | 2017-01-05 17:40 | DIAGNOSTIC IMAGING REPORT ---
PROCEDURE: XR CHEST 1 VIEW INDICATION: CHEST PAIN TECHNIQUE: Portable AP view 05:00 p.m. COMPARISON: Chest 11/25/2016 and 06/05/2016 FINDINGS: Left lower lobe infiltrate with a small pleural effusion. Moderate cardiomegaly is unchanged. Thorax is normal. IMPRESSION: 1. Left lower lobe infiltrate, small pleural effusion.
--- NOTE | 2017-01-05 20:44 | ED ORDER SUMMARY ---
..... Patient: ALEJANDRA DUNN OrderSheet [facility] VisitID: [id number] [place] [address] 81y, F Registration Date/Time: 01/05/2017 ORDER SHEET Weight: 72.1 kg (stated) Allergies: Penicillin GENERAL ORDERS: Chest 1V Urgent (16:54 01/05/2017 Gregory Kaminski) (Ack 17:02 LNations ER Tech1) (17:14 JBoardlesal R.N.) Cardiac Panel Stat (16:54 01/05/2017 Gregory Kaminski) (16:57 KWilliams R.N.) BNP Urgent (16:54 01/05/2017 Gregory Kaminski) (16:57 KWilliams R.N.) D-Dimer Urgent (16:54 01/05/2017 Gregory Kaminski) (16:57 KWilliams R.N.) UA-Culture if indicated Urgent (16:54 01/05/2017 Gregory Kaminski) (Ack 17:02 LNations ER Tech1) (17:24 MWinterer R.N.) EKG - ER Stat (16:54 01/05/2017 Gregory Kaminski) (16:55 MWinterer R.N.) MEDICATION ORDERS: Azithromycin PO 500 mg (NOW) (18:07 01/05/2017 Gregory Kaminski) (Ack 18:17 MWinterer R.N.) (18:33 MWinterer R.N.) NitroGLYCERIN Paste Topical 1 in. (NOW, to CW) (18:07 01/05/2017 Gregory Kaminski) (Ack 18:17 MWinterer R.N.) (18:34 MWinterer R.N.) Ativan PO 1 mg (HIGH ALERT MEDICATION, NOW) (21:14 01/05/2017 Gregory Kaminski) (21:18 HOShaughnessy R.N.) IV FLUIDS: IV Saline Lock (16:54 01/05/2017 Gregory Kaminski) (16:56 MWinterer R.N.) Lasix IV 40 mg (NOW) (18:07 01/05/2017 Gregory Kaminski) (Ack 18:17 MWinterer R.N.) (18:33 MWinterer R.N.) ORDER SHEET NOTES: [Electronically signed by Geovnany Ballesteros R.N. (21:36 01/05/2017)] [Electronically signed by Devon Hsieh Dr. (22:57 01/05/2017)] [Electronically locked/signed by Geovanny Ballesteros R.N. (21:36 01/05/2017)]
--- NOTE | 2017-01-05 20:44 | ED NURSING NOTES ---
Clinical Report - Nurses [facility] [address] [place] [address] 01/05/2017 16:38 Patient: ALEJANDRA DUNN TRIAGE Triage time 16:39. Acuity: LEVEL 2. Chief Complaint: CHEST DISCOMFORT and SHORTNESS OF BREATH. Alert. No acute distress. SEPSIS SCREEN: Sepsis Screen. Negative (no infection suspected/documented). --16:47 Colt Cagle R.N. 16:42 01/05/17. BP: 143/114. HR: 41. RR: 22. O2 saturation: 100%. Pain level now 0/10. --16:47 Colt Cagle R.N. Weight: 72.1 kg stated. Height/Length: 64 inches Per Patient. BMI: 27.3. --16:43 Colt Cagle R.N. Medications AmLODIPine Besylate Oral 10 mg. Atorvastatin Calcium Oral 40 mg, at bedtime. Carvedilol Oral (Tablet 25 mg) 1 tablet, bid. Hydrocodone-Acetaminophen Oral 5 mg, 4x a day as needed. Quinapril HCl Oral 40 mg, daily. TraZODone HCl Oral 50-150mg at hs . --16:46 Colt Cagle R.N. Allergies Penicillin. --16:46 Colt Cagle R.N. Medication/allergy information source: the patient. --16:47 Colt Cagle R.N. History Primary physician (leidy). ( chest pressure x 1 week. States the worst day was yesterday. Also c/o shortness of breath with exertion. Recently wearing a halter monitor that was completed last wednesday. States she has no results from study.). Onset. (1 weeks ago). Treatment LUMP ROLLER: None. SOCIAL HX: Former smoker, end date 2001. No alcohol use or drug use. FALL RISK ASSESSMENT: Fall risk assessment completed. No fall risk identified. NUTRITIONAL RISK ASSESSMENT: The nutritional risk assessment revealed no deficiencies. FUNCTIONAL ASSESSMENT: Functional assessment: no impairments noted. LEARNING NEEDS ASSESSMENT: The learning needs assessment revealed no barriers. SKIN INTEGRITY ASSESSMENT: Skin integrity risk assessment completed. No skin integrity risk identified. --16:47 Colt Cagle R.N. PROBLEMS: Congestive Heart Failure. Arrhythmia. Dizzy. Heart rate 37. Hemorrhoids. Pneumonia. UTI - Urinary Tract Infection. Reflux. Sprain. Glaucoma. Hyperlipidemia. Tetanus Status. Acute Pain. Back Pain. Hypertension. Immunizations. --16:47 Colt Cagle R.N. ADDITIONAL SURGERIES: Ankle repair. Endartorectomy. --16:47 Colt Cagle R.N. Interventions ID band on patient. To treatment room. --16:47 Colt Cagle R.N. PHYSICAL ASSESSMENT To room via wheelchair. GENERAL / NEURO / PSYCH: Alert. Oriented X 4. Appears in no acute distress. HEENT: Mucous membranes are pink. RESPIRATORY: Chest nontender. No chest pain reproduced on physical exam. CVS: Pulses within normal limits. Capillary refill less than 2 seconds. GI / : Abdomen soft and nontender. EXTREMITIES: 3+ edema of the right lower extremity involving the foot, ankle and lower leg; 2+ edema of the left lower extremity involving the foot, ankle and lower leg. SKIN: Skin is warm and dry. Normal skin turgor. --16:49 Colt Cagle R.N. NURSING PROGRESS NOTES 16:49 01/05/17. The plan of care for this patient has been created. Patient gowned. Head of bed elevated. Call light placed in reach. Bed placed in lowest position. Brakes of bed on. Patient ready for evaluation- chart flagged and ED physician notified. --16:49 Colt Cagle R.N. 16:51 01/05/2017 Site #1 started via IV in the left antecubital space with an 18g angiocath, with aseptic technique and good blood return; one attempt. Blood drawn: rainbow set. Labeled in the presence of the patient and sent to the lab. Saline lock flushed with 10 mL saline. --16:56 Margret Younger R.N. EKG time: (6417). EKG was ordered, performed by a tech and shown to the ED physician. --16:57 Nations, Shawna, ER Tech1 Assisted patient to bathroom, to stand and to ambulate; tolerated well. --17:15 Colt Cagle R.N. 17:25 01/05/17. Checked patient name and birthdate: patient confirmed. Instructions provided to collect clean catch urine and patient verbalized understanding. Clean catch urine collected with return of yellow-colored clear urine; sample sent to lab for urinalysis. Specimen labeled in the presence of the patient. --17:25 Margret Younger R.N. 18:24 01/05/2017 NITROGLYCERIN PASTE Topical 1 inch. Applied to the left chest. Allergies verified and confirmed 5 rights. --18:34 Margret Younger R.N. 18:28 01/05/2017 Lasix IVP 40 mg given over 3 minute(s) via site #1. Allergies verified and confirmed 5 rights. IV patency established. IV site checked: no pain, redness, or swelling. IV flushed thoroughly pre- and post-medication administration. IVP given by RN. --18:33 Margret Younger R.N. 18:33 01/05/2017 Azithromycin PO 500 mg given. Allergies verified and confirmed 5 rights. --18:33 Margret Younger R.N. 18:46 01/05/17. ( Pt ambulated to BR.. Tolerated well.). --18:46 Margret Younger R.N. 18:47 01/05/17. BP: 206/66. HR: 74. RR: 16. O2 saturation: 92% on room air. --18:48 Margret Younger R.N. 19:06 01/05/17. Care transferred and report given (LEONARD Small). --19:06 Margret Younger R.N. 19:20 01/05/17. BP: 165/105. HR: 79. RR: 12. O2 saturation: 91% on room air. Pain level now: 0/10. --19:25 Brian Merritt monitoring and evaluation advisor, pulse oximeter and NIBP monitor placed on patient; electronic device monitor- Lead I, II, III and aVF; monitor alarms on. Call light placed in reach of patient. Side rails up x 1. Bed placed in lowest position. Brakes of bed on. --19:25 Brian Merritt Call light placed in reach. Side rails up x 1. Bed placed in lowest position. Brakes of bed on. --20:01 Brian Merritt 20:00 01/05/17. BP: 155/110. HR: 79. RR: 19. O2 saturation: 94% on room air. Pain level now: 0/10. --20:01 Brian Merritt Telemetry strip posted to chart. --20:16 McQuoid, Pau, ER Tech1 20:31 01/05/17. BP: 207/69. HR: 83. RR: 16. O2 saturation: 94%. --20:33 Geovanny Ballesteros R.N. Overall patient status is worse. GENERAL / NEURO / PSYCH: The patient reports anxiety. ( Patient called out requesting to speak with RN. Patient states that she is very worried about the idea of Dr. Murillo taking over her care. Patient hyperventilating and states that she does not feel safe around Dr. Murillo. Reassured patient that she would receive safe care while admitted in the hospital. Informed ED physician of patient concerns. Physician now at the bedside discussing treatment options.). --20:33 Geovanny Ballesteros R.N. 21:18 01/05/2017 Ativan (LORazepam) PO Tablets 1 mg given. Allergies verified, confirmed 5 rights and sedative warning given to the patient. --21:18 Geovanny Ballesteros R.N. DISPOSITION / DISCHARGE ( Physician discussed treatment options for patient. Patient decided that she would feel more comfortable leaving A and following up with her PCP.). --20:48 Geovanny Ballesteros R.N. Condition at departure: improved. The goals identified in the patient's plan of care were partially met. The following issues were addressed: impairments, educational issues and follow up care. No learning barriers present. Reviewed medication(s) side effects, precautions, dosing and course information. Prescription(s) given to the patient. Reviewed referral to a primary care physician. Patient verbalized understanding. Written instructions provided in Lao. The patient was discharged home and accompanied by family. She left the Emergency Department ambulatory and via private vehicle. Family member driving. FALL RISK ASSESSMENT: Fall risk assessment completed. No fall risk identified. --21:35 Geovanny Ballesteros R.N. 21:33 01/05/17. BP: 192/62 taken on the left arm, via an automated monitor, while lying. HR: 72. RR: 16. O2 saturation: 99%. Temp: 98.2 F. Pain level now: 0/10. --21:35 Geovanny Ballesteros R.N. Departure time: 2135 PM. --21:35 Geovanny Ballesteros R.N. 21:35 01/05/2017 Site #1 removed upon discharge. Pressure dressing applied. --21:35 Geovanny Ballesteros R.N. Locked/Released at 01/05/2017 21:36 by Geovanny Ballesteros R.N.
--- NOTE | 2017-01-05 20:44 | ED CLINICAL REPORT ---
Clinical Report - Physicians/Mid Levels [facility] [address] [place] [address] 01/05/2017 16:38 Patient: ALEJANDRA DUNN Time Seen: 1644; initial patient contact. Arrived- By private vehicle. Historian- patient. HISTORY OF PRESENT ILLNESS Chief Complaint: DYSPNEA and HISTORY OF CONGESTIVE HEART FAILURE. This started yesterday and is still present. It was gradual in onset. The dyspnea is described as moderate. The dyspnea is worsened by exertion and is improved by rest. She has not had worsening of dyspnea with walking, supine position or coughing. The patient has had a cough, chest discomfort, foot swelling and orthopnea. No sputum production, fever, sweating episodes, wheezing or chills. No dyspnea on exertion, chest pain, calf pain, anxiety or palpitations. Similar symptoms previously: None. Recent medical care: Not recently seen/assessed. REVIEW OF SYSTEMS No sore throat, nasal discharge, sinus drainage, nausea or vomiting. All systems otherwise negative, except as recorded above. PAST HISTORY Dizzy. Heart rate 37. Hemorrhoids. Pneumonia. UTI - Urinary Tract Infection. Reflux. Sprain. Glaucoma. Hyperlipidemia. Tetanus Status. Acute Pain. Back Pain. Hypertension. Additional Surgeries: Ankle repair. Endartorectomy. Medications: AmLODIPine Besylate Oral 10 mg. Atorvastatin Calcium Oral 40 mg, at bedtime. Carvedilol Oral (Tablet 25 mg) 1 tablet, bid. Hydrocodone-Acetaminophen Oral 5 mg, 4x a day as needed. Quinapril HCl Oral 40 mg, daily. TraZODone HCl Oral 50-150mg at hs . Allergies: Penicillin. SOCIAL HISTORY Former smoker, end date 2001. ADDITIONAL NOTES The nursing notes have been reviewed with agreement regarding the chief complaint, PMH and patient medications and allergies. PHYSICAL EXAM Vital Signs: 01/05/2017 16:42 BP: 143/114. HR: 41. RR: 22. O2 saturation: 100%. Have been reviewed and do not appear to be correct. Appearance: Alert. No acute distress. Eyes: Eyes normal inspection. ENT: Pharynx normal. Neck: No jugular venous distention. CVS: Abnormal rhythm, which is regularly irregular. Rate normal. Respiratory: No respiratory distress. Mild rhonchi present in the right lung base posteriorly. Mild rales present in the bases bilaterally. Skin: Normal skin color. No rash. Extremities: Bilateral mild pitting edema of the lower extremities involving both ankles. No calf tenderness. Neuro: Oriented X 3. LABS, X-RAYS, AND EKG EKG: EKG time: (1655). Normal sinus rhythm. Rate: 78. Frequent ectopic beats (Bigeminy). Premature ventricular contractions. Normal P waves. Normal TERESSA. Normal QRS complex. Right axis deviation. Normal ST and T waves, QT and QTc. EKG unchanged when compared with prior EKG. The study has been interpreted contemporaneously by me. The study has been independently viewed by me. The EKG appears to be a good tracing. Interpretation time: 1655. Chest X-ray: (1. Left lower lobe infiltrate, small pleural effusion.). Views: AP. Technique: good. The X-rays were independently viewed by me, interpreted by the radiologist and discussed with the radiologist. Laboratory Tests: UA-Culture if indicated: (HERLINDA: 01/05/2017 17:15) ( MsgRcvd 01/05/2017 17:36) Final results Test Result Flag Units (Reference) URINE COLOR YELLOW URINE APPEARANCE CLEAR URINE GLUCOSE NEGATIVE (NEGATIVE) URINE BILIRUBIN NEGATIVE (NEGATIVE) URINE KETONE NEGATIVE (NEGATIVE) URINE SPECIFIC GRAVITY 1.020 (1.010-1.030) URINE PH 7.0 (5.0-8.0) URINE PROTEIN 2+ (NEGATIVE) URINE UROBILINOGEN 0.2 EU/dL (0.2-1.0) URINE NITRITE NEGATIVE (NEGATIVE) URINE BLOOD TRACE-LYSED (NEGATIVE) URINE LEUK ESTERASE NEGATIVE (NEGATIVE) URINE RBC NONE SEEN rbc/hpf (0-1) URINE WBC 0-1 wbc/hpf (0-1) URINE EPITHELIAL CELLS 0-1 EPI/hpf (0-5) URINE BACTERIA NONE SEEN (NONE SEEN) URINE COMMENT CULT NOT INDICATED URINE CULTURES ARE SET-UP BASED ON THE FOLLOWING CRITERIA:POSITIVE NITRITEPOSITIVE LEUKOCYTE ESTERASEGREATER THAN 10 WHITE BLOOD CELLSMODERATE (2+) OR GREATER BACTERIA CBC w Diff: (HERLINDA: 01/05/2017 16:50) ( MsgRcvd 01/05/2017 17:03) Final results Test Result Flag Units (Reference) WHITE BLOOD COUNT 9.6 K/uL (4.5-11.5) RED BLOOD COUNT 4.82 M/uL (4.00-5.20) HEMOGLOBIN 14.2 gm/dL (12.0-16.0) HEMATOCRIT 43.2 % (36.0-46.0) MEAN CELL VOLUME 90 fL (80-100) MEAN CORPUSCULAR HGB 29 pg (26-34) MEAN CORPUSCULAR HGB CONC 33 g/dL (31-37) RED CELL DISTRIBUTION WIDTH 15.1 H % (11.6-14.8) PLATELET COUNT 209 K/uL (150-400) NEUTROPHIL % 57.8 % (50-75) LYMPH % 31.0 % (25-40) MONO % 9.0 % (3-14) EOSINOPHIL % 1.7 % (0-4) BASOPHIL % 0.5 % (0-2) [id number]: (HERLINDA: 01/05/2017 16:50) ( [facility]) Final results Test Result Flag Units (Reference) D-DIMER QUANTITATIVE 0.76 H ug/mLFEU (0.27-0.52) The primary value of this quantitative assay relates toits negative predictive value (i.e. exclusion) of pulmonaryembolism/deep vein thrombosis/DIC.Elevated levels of d-dimer may also occur with:, age, cancer, inflammation, liver disease,post-op, infection, hematoma, coronary disease, peripheralarteriopathy, bleeding disorders and thrombolytic treatment.Results should be correlated with other clinical andradiological data.Testing Methodology: Latex Immunoassay BNP: (HERLINDA: 01/05/2017 16:50) ( [facility] [place] 01/05/2017 17:25) Final results Test Result Flag Units (Reference) B-TYPE NATRIURETIC PEPTIDE 809 H pg/ml (5-100) CHEM 13 PANEL: (HERLINDA: 01/05/2017 16:50) ( MsgRcvd 01/05/2017 17:17) Final results Test Result Flag Units (Reference) GLUCOSE 78 mg/dL (70-110) BUN 19 H mg/dL (7-18) CREATININE 0.9 mg/dL (0.6-1.3) Estimated GFR >60 mL/min Estimated GFR- >60 mL/min Note: Persistent reduction over 3 months in eGFR<60 mL/min/1.73 m2 defines CKD. Patients with eGFR values>=60 mL/min/1.73 m2 may also have CKD if evidence ofpersistent proteinuria. Additional information may be foundat www.kidney.org. SODIUM 143 mmol/L (136-145) POTASSIUM 3.9 mmol/L (3.5-5.1) CHLORIDE 106 mmol/L (98-107) CARBON DIOXIDE 29 mmol/L (21-32) CALCIUM 10.0 mg/dL (8.5-10.1) TOTAL PROTEIN 7.5 g/dL (6.4-8.2) ALBUMIN 4.1 g/dL (3.3-5.0) BILIRUBIN, TOTAL 0.6 mg/dL (0.0-1.0) ALKALINE PHOSPHATASE 95 U/L (46-116) AST (SGOT) 23 U/L (15-37) ALT (SGPT) 38 U/L (12-78) CPK 72 U/L (24-260) MAGNESIUM 2.1 mg/dL (1.8-2.4) TROPONIN I <0.05 L ng/mL (0.00-1.5) TROPONIN REFERENCE RANGE:<0.1 NEGATIVE0.1-1.5 INDETERMINANT>1.5 POSITIVE . PROGRESS AND PROCEDURES Discussed case with patient's primary care provider, (call returned 20:15 From her card cutter helper Dr. Javed. Holter results showed 22% PVC's. Nl EF 6 mos ago. Recommended repeat echo and stress test.). Discussed case with hospitalist, (call returned 20:41 Dr. Taylor stated we are not able to do stress testing at this time, recommends transferring the patient.). Patient counseled in person several times regarding the patient's stable condition, test results, diagnosis and need for additional testing and transfer. Pt and daughter having serious reservations about Dr. Javed and are going to find a new card cutter helper and refuse transfer and will signout AMA. Disposition: Condition: stable. CLINICAL IMPRESSION Acute diastolic, congestive heart failure Bacterial pneumonia with hypoxemia. Empiric antibiotics given in the ED and prescribed. INSTRUCTIONS Your Current Medications: CONTINUE TAKING THE FOLLOWING MEDICATIONS: AmLODIPine Besylate Oral : 10 mg. Atorvastatin Calcium Oral : 40 mg at bedtime. Carvedilol Oral : Tablet 25 mg, 1 tablet bid. Hydrocodone-Acetaminophen Oral : 5 mg 4x a day, prn. Quinapril HCl Oral : 40 mg daily. TraZODone HCl Oral : 50-150mg at hs. Prescription Medications: Lasix 40 mg: take 1 orally every 24 hours. Dispense fifteen (15). No refills. Substitution is permissible. Azithromycin take 1 orally every day for 4 days. Total course 4 days. No refills. (Loading dose given in the ED) Follow-up: Follow up with your doctor tomorrow. Blood pressure screening was not performed during this visit because the patient has an active diagnosis of hypertension. (Electronically signed by Devon Hsieh Dr. 01/05/2017 22:57)
--- NOTE | 2017-01-05 20:44 | ED CLINICAL REPORT ---
Clinical Report - Physicians/Mid Levels [facility] [address] [place] [address] 01/05/2017 16:38 Patient: ALEJANDRA DUNN Time Seen: 1644; initial patient contact. Arrived- By private vehicle. Historian- patient. HISTORY OF PRESENT ILLNESS Chief Complaint: DYSPNEA and HISTORY OF CONGESTIVE HEART FAILURE. This started yesterday and is still present. It was gradual in onset. The dyspnea is described as moderate. The dyspnea is worsened by exertion and is improved by rest. She has not had worsening of dyspnea with walking, supine position or coughing. The patient has had a cough, chest discomfort, foot swelling and orthopnea. No sputum production, fever, sweating episodes, wheezing or chills. No dyspnea on exertion, chest pain, calf pain, anxiety or palpitations. Similar symptoms previously: None. Recent medical care: Not recently seen/assessed. REVIEW OF SYSTEMS No sore throat, nasal discharge, sinus drainage, nausea or vomiting. All systems otherwise negative, except as recorded above. PAST HISTORY Dizzy. Heart rate 37. Hemorrhoids. Pneumonia. UTI - Urinary Tract Infection. Reflux. Sprain. Glaucoma. Hyperlipidemia. Tetanus Status. Acute Pain. Back Pain. Hypertension. Additional Surgeries: Ankle repair. Endartorectomy. Medications: AmLODIPine Besylate Oral 10 mg. Atorvastatin Calcium Oral 40 mg, at bedtime. Carvedilol Oral (Tablet 25 mg) 1 tablet, bid. Hydrocodone-Acetaminophen Oral 5 mg, 4x a day as needed. Quinapril HCl Oral 40 mg, daily. TraZODone HCl Oral 50-150mg at hs . Allergies: Penicillin. SOCIAL HISTORY Former smoker, end date 2001. ADDITIONAL NOTES The nursing notes have been reviewed with agreement regarding the chief complaint, PMH and patient medications and allergies. PHYSICAL EXAM Vital Signs: 01/05/2017 16:42 BP: 143/114. HR: 41. RR: 22. O2 saturation: 100%. Have been reviewed and do not appear to be correct. Appearance: Alert. No acute distress. Eyes: Eyes normal inspection. ENT: Pharynx normal. Neck: No jugular venous distention. CVS: Abnormal rhythm, which is regularly irregular. Rate normal. Respiratory: No respiratory distress. Mild rhonchi present in the right lung base posteriorly. Mild rales present in the bases bilaterally. Skin: Normal skin color. No rash. Extremities: Bilateral mild pitting edema of the lower extremities involving both ankles. No calf tenderness. Neuro: Oriented X 3. LABS, X-RAYS, AND EKG EKG: EKG time: (1655). Normal sinus rhythm. Rate: 78. Frequent ectopic beats (Bigeminy). Premature ventricular contractions. Normal P waves. Normal TERESSA. Normal QRS complex. Right axis deviation. Normal ST and T waves, QT and QTc. EKG unchanged when compared with prior EKG. The study has been interpreted contemporaneously by me. The study has been independently viewed by me. The EKG appears to be a good tracing. Interpretation time: 1655. Chest X-ray: (1. Left lower lobe infiltrate, small pleural effusion.). Views: AP. Technique: good. The X-rays were independently viewed by me, interpreted by the radiologist and discussed with the radiologist. Laboratory Tests: UA-Culture if indicated: (HERLINDA: 01/05/2017 17:15) ( MsgRcvd 01/05/2017 17:36) Final results Test Result Flag Units (Reference) URINE COLOR YELLOW URINE APPEARANCE CLEAR URINE GLUCOSE NEGATIVE (NEGATIVE) URINE BILIRUBIN NEGATIVE (NEGATIVE) URINE KETONE NEGATIVE (NEGATIVE) URINE SPECIFIC GRAVITY 1.020 (1.010-1.030) URINE PH 7.0 (5.0-8.0) URINE PROTEIN 2+ (NEGATIVE) URINE UROBILINOGEN 0.2 EU/dL (0.2-1.0) URINE NITRITE NEGATIVE (NEGATIVE) URINE BLOOD TRACE-LYSED (NEGATIVE) URINE LEUK ESTERASE NEGATIVE (NEGATIVE) URINE RBC NONE SEEN rbc/hpf (0-1) URINE WBC 0-1 wbc/hpf (0-1) URINE EPITHELIAL CELLS 0-1 EPI/hpf (0-5) URINE BACTERIA NONE SEEN (NONE SEEN) URINE COMMENT CULT NOT INDICATED URINE CULTURES ARE SET-UP BASED ON THE FOLLOWING CRITERIA:POSITIVE NITRITEPOSITIVE LEUKOCYTE ESTERASEGREATER THAN 10 WHITE BLOOD CELLSMODERATE (2+) OR GREATER BACTERIA CBC w Diff: (HERLINDA: 01/05/2017 16:50) ( MsgRcvd 01/05/2017 17:03) Final results Test Result Flag Units (Reference) WHITE BLOOD COUNT 9.6 K/uL (4.5-11.5) RED BLOOD COUNT 4.82 M/uL (4.00-5.20) HEMOGLOBIN 14.2 gm/dL (12.0-16.0) HEMATOCRIT 43.2 % (36.0-46.0) MEAN CELL VOLUME 90 fL (80-100) MEAN CORPUSCULAR HGB 29 pg (26-34) MEAN CORPUSCULAR HGB CONC 33 g/dL (31-37) RED CELL DISTRIBUTION WIDTH 15.1 H % (11.6-14.8) PLATELET COUNT 209 K/uL (150-400) NEUTROPHIL % 57.8 % (50-75) LYMPH % 31.0 % (25-40) MONO % 9.0 % (3-14) EOSINOPHIL % 1.7 % (0-4) BASOPHIL % 0.5 % (0-2) [id number]: (HERLINDA: 01/05/2017 16:50) ( [facility] [place] Final results Test Result Flag Units (Reference) D-DIMER QUANTITATIVE 0.76 H ug/mLFEU (0.27-0.52) The primary value of this quantitative assay relates toits negative predictive value (i.e. exclusion) of pulmonaryembolism/deep vein thrombosis/DIC.Elevated levels of d-dimer may also occur with:, age, cancer, inflammation, liver disease,post-op, infection, hematoma, coronary disease, peripheralarteriopathy, bleeding disorders and thrombolytic treatment.Results should be correlated with other clinical andradiological data.Testing Methodology: Latex Immunoassay BNP: (HERLINDA: 01/05/2017 16:50) ( [facility] [place] 01/05/2017 17:25) Final results Test Result Flag Units (Reference) B-TYPE NATRIURETIC PEPTIDE 809 H pg/ml (5-100) CHEM 13 PANEL: (HERLINDA: 01/05/2017 16:50) ( MsgRcvd 01/05/2017 17:17) Final results Test Result Flag Units (Reference) GLUCOSE 78 mg/dL (70-110) BUN 19 H mg/dL (7-18) CREATININE 0.9 mg/dL (0.6-1.3) Estimated GFR >60 mL/min Estimated GFR- >60 mL/min Note: Persistent reduction over 3 months in eGFR<60 mL/min/1.73 m2 defines CKD. Patients with eGFR values>=60 mL/min/1.73 m2 may also have CKD if evidence ofpersistent proteinuria. Additional information may be foundat www.kidney.org. SODIUM 143 mmol/L (136-145) POTASSIUM 3.9 mmol/L (3.5-5.1) CHLORIDE 106 mmol/L (98-107) CARBON DIOXIDE 29 mmol/L (21-32) CALCIUM 10.0 mg/dL (8.5-10.1) TOTAL PROTEIN 7.5 g/dL (6.4-8.2) ALBUMIN 4.1 g/dL (3.3-5.0) BILIRUBIN, TOTAL 0.6 mg/dL (0.0-1.0) ALKALINE PHOSPHATASE 95 U/L (46-116) AST (SGOT) 23 U/L (15-37) ALT (SGPT) 38 U/L (12-78) CPK 72 U/L (24-260) MAGNESIUM 2.1 mg/dL (1.8-2.4) TROPONIN I <0.05 L ng/mL (0.00-1.5) TROPONIN REFERENCE RANGE:<0.1 NEGATIVE0.1-1.5 INDETERMINANT>1.5 POSITIVE . PROGRESS AND PROCEDURES Discussed case with patient's primary care provider, (call returned 20:15 From her checker stocker Dr. Javed. Holter results showed 22% PVC's. Nl EF 6 mos ago. Recommended repeat echo and stress test.). Discussed case with hospitalist, (call returned 20:41 Dr. Taylor stated we are not able to do stress testing at this time, recommends transferring the patient.). Patient counseled in person several times regarding the patient's stable condition, test results, diagnosis and need for additional testing and transfer. Pt and daughter having serious reservations about Dr. Javed and are going to find a new checker stocker and refuse transfer and will signout AMA. Disposition: Condition: stable. CLINICAL IMPRESSION Acute diastolic, congestive heart failure Bacterial pneumonia with hypoxemia. Empiric antibiotics given in the ED and prescribed. INSTRUCTIONS Your Current Medications: CONTINUE TAKING THE FOLLOWING MEDICATIONS: AmLODIPine Besylate Oral : 10 mg. Atorvastatin Calcium Oral : 40 mg at bedtime. Carvedilol Oral : Tablet 25 mg, 1 tablet bid. Hydrocodone-Acetaminophen Oral : 5 mg 4x a day, prn. Quinapril HCl Oral : 40 mg daily. TraZODone HCl Oral : 50-150mg at hs. Prescription Medications: Lasix 40 mg: take 1 orally every 24 hours. Dispense fifteen (15). No refills. Substitution is permissible. Azithromycin take 1 orally every day for 4 days. Total course 4 days. No refills. (Loading dose given in the ED) Follow-up: Follow up with your doctor tomorrow. Blood pressure screening was not performed during this visit because the patient has an active diagnosis of hypertension. (Electronically signed by Devon Hsieh Dr. 01/05/2017 22:57)
--- NOTE | 2017-01-05 20:44 | ED NURSING NOTES ---
Clinical Report - Nurses [facility] [address] [place] [address] 01/05/2017 16:38 Patient: ALEJANDRA DUNN TRIAGE Triage time 16:39. Acuity: LEVEL 2. Chief Complaint: CHEST DISCOMFORT and SHORTNESS OF BREATH. Alert. No acute distress. SEPSIS SCREEN: Sepsis Screen. Negative (no infection suspected/documented). --16:47 Colt Cagle R.N. 16:42 01/05/17. BP: 143/114. HR: 41. RR: 22. O2 saturation: 100%. Pain level now 0/10. --16:47 Colt Cagle R.N. Weight: 72.1 kg stated. Height/Length: 64 inches Per Patient. BMI: 27.3. --16:43 Colt Cagle R.N. Medications AmLODIPine Besylate Oral 10 mg. Atorvastatin Calcium Oral 40 mg, at bedtime. Carvedilol Oral (Tablet 25 mg) 1 tablet, bid. Hydrocodone-Acetaminophen Oral 5 mg, 4x a day as needed. Quinapril HCl Oral 40 mg, daily. TraZODone HCl Oral 50-150mg at hs . --16:46 Colt Cagle R.N. Allergies Penicillin. --16:46 Colt Cagle R.N. Medication/allergy information source: the patient. --16:47 Colt Cagle R.N. History Primary physician (leidy). ( chest pressure x 1 week. States the worst day was yesterday. Also c/o shortness of breath with exertion. Recently wearing a halter monitor that was completed last wednesday. States she has no results from study.). Onset. (1 weeks ago). 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 SOCIAL HX: Former smoker, end date 2001. No alcohol use or drug use. FALL RISK ASSESSMENT: Fall risk assessment completed. No fall risk identified. NUTRITIONAL RISK ASSESSMENT: The nutritional risk assessment revealed no deficiencies. FUNCTIONAL ASSESSMENT: Functional assessment: no impairments noted. LEARNING NEEDS ASSESSMENT: The learning needs assessment revealed no barriers. SKIN INTEGRITY ASSESSMENT: Skin integrity risk assessment completed. No skin integrity risk identified. --16:47 Colt Cagle R.N. PROBLEMS: Congestive Heart Failure. Arrhythmia. Dizzy. Heart rate 37. Hemorrhoids. Pneumonia. UTI - Urinary Tract Infection. Reflux. Sprain. Glaucoma. Hyperlipidemia. Tetanus Status. Acute Pain. Back Pain. Hypertension. Immunizations. --16:47 Colt Cagle R.N. ADDITIONAL SURGERIES: Ankle repair. Endartorectomy. --16:47 Colt Cagle R.N. Interventions ID band on patient. To treatment room. --16:47 Colt Cagle R.N. PHYSICAL ASSESSMENT To room via wheelchair. GENERAL / NEURO / PSYCH: Alert. Oriented X 4. Appears in no acute distress. HEENT: Mucous membranes are pink. RESPIRATORY: Chest nontender. No chest pain reproduced on physical exam. CVS: Pulses within normal limits. Capillary refill less than 2 seconds. GI / : Abdomen soft and nontender. EXTREMITIES: 3+ edema of the right lower extremity involving the foot, ankle and lower leg; 2+ edema of the left lower extremity involving the foot, ankle and lower leg. SKIN: Skin is warm and dry. Normal skin turgor. --16:49 Colt Cagle R.N. NURSING PROGRESS NOTES 16:49 01/05/17. The plan of care for this patient has been created. Patient gowned. Head of bed elevated. Call light placed in reach. Bed placed in lowest position. Brakes of bed on. Patient ready for evaluation- chart flagged and ED physician notified. --16:49 Colt Cagle R.N. 16:51 01/05/2017 Site #1 started via IV in the left antecubital space with an 18g angiocath, with aseptic technique and good blood return; one attempt. Blood drawn: rainbow set. Labeled in the presence of the patient and sent to the lab. Saline lock flushed with 10 mL saline. --16:56 Margret Younger R.N. EKG time: (1288). EKG was ordered, performed by a tech and shown to the ED physician. --16:57 Nations, Shawna, ER Tech1 Assisted patient to bathroom, to stand and to ambulate; tolerated well. --17:15 Colt Cagle R.N. 17:25 01/05/17. Checked patient name and birthdate: patient confirmed. Instructions provided to collect clean catch urine and patient verbalized understanding. Clean catch urine collected with return of yellow-colored clear urine; sample sent to lab for urinalysis. Specimen labeled in the presence of the patient. --17:25 Margret Younger R.N. 18:24 01/05/2017 NITROGLYCERIN PASTE Topical 1 inch. Applied to the left chest. Allergies verified and confirmed 5 rights. --18:34 Margret Younger R.N. 18:28 01/05/2017 Lasix IVP 40 mg given over 3 minute(s) via site #1. Allergies verified and confirmed 5 rights. IV patency established. IV site checked: no pain, redness, or swelling. IV flushed thoroughly pre- and post-medication administration. IVP given by RN. --18:33 Margret Younger R.N. 18:33 01/05/2017 Azithromycin PO 500 mg given. Allergies verified and confirmed 5 rights. --18:33 Margret Younger R.N. 18:46 01/05/17. ( Pt ambulated to BR.. Tolerated well.). --18:46 Margret Younger R.N. 18:47 01/05/17. BP: 206/66. HR: 74. RR: 16. O2 saturation: 92% on room air. --18:48 Margret Younger R.N. 19:06 01/05/17. Care transferred and report given (LEONARD Small). --19:06 Margret Younger R.N. 19:20 01/05/17. BP: 165/105. HR: 79. RR: 12. O2 saturation: 91% on room air. Pain level now: 0/10. --19:25 Brian Merritt monitoring tech, pulse oximeter and NIBP monitor placed on patient; quality assurance monitor final- Lead I, II, III and aVF; monitor alarms on. Call light placed in reach of patient. Side rails up x 1. Bed placed in lowest position. Brakes of bed on. --19:25 Brian Merritt Call light placed in reach. Side rails up x 1. Bed placed in lowest position. Brakes of bed on. --20:01 Brian Merritt 20:00 01/05/17. BP: 155/110. HR: 79. RR: 19. O2 saturation: 94% on room air. Pain level now: 0/10. --20:01 Brian Merritt Telemetry strip posted to chart. --20:16 McQuoid, Pau, ER Tech1 20:31 01/05/17. BP: 207/69. HR: 83. RR: 16. O2 saturation: 94%. --20:33 Geovanny Ballesteros R.N. Overall patient status is worse. GENERAL / NEURO / PSYCH: The patient reports anxiety. ( Patient called out requesting to speak with RN. Patient states that she is very worried about the idea of Dr. Murillo taking over her care. Patient hyperventilating and states that she does not feel safe around Dr. Murillo. Reassured patient that she would receive safe care while admitted in the hospital. Informed ED physician of patient concerns. Physician now at the bedside discussing treatment options.). --20:33 Geovanny Ballesteros R.N. 21:18 01/05/2017 Ativan (LORazepam) PO Tablets 1 mg given. Allergies verified, confirmed 5 rights and sedative warning given to the patient. --21:18 Geovanny Ballesteros R.N. DISPOSITION / DISCHARGE ( Physician discussed treatment options for patient. Patient decided that she would feel more comfortable leaving A and following up with her PCP.). --20:48 Geovanny Ballesteros R.N. Condition at departure: improved. The goals identified in the patient's plan of care were partially met. The following issues were addressed: impairments, educational issues and follow up care. No learning barriers present. Reviewed medication(s) side effects, precautions, dosing and course information. Prescription(s) given to the patient. Reviewed referral to a primary care physician. Patient verbalized understanding. Written instructions provided in Bel[place]ian. The patient was discharged home and accompanied by family. She left the Emergency Department ambulatory and via private vehicle. Family member driving. FALL RISK ASSESSMENT: Fall risk assessment completed. No fall risk identified. --21:35 Geovanny Ballesteros R.N. 21:33 01/05/17. BP: 192/62 taken on the left arm, via an automated monitor, while lying. HR: 72. RR: 16. O2 saturation: 99%. Temp: 98.2 F. Pain level now: 0/10. --21:35 Geovanny Ballesteros R.N. Departure time: 2135 PM. --21:35 Geovanny Ballesteros R.N. 21:35 01/05/2017 Site #1 removed upon discharge. Pressure dressing applied. --21:35 Geovanny Ballesteros R.N. Locked/Released at 01/05/2017 21:36 by Geovanny Ballesteros R.N.
--- NOTE | 2017-01-05 20:44 | ED ORDER SUMMARY ---
..... Patient: ALEJANDRA DUNN OrderSheet [facility] VisitID: [id number] [place] [address] 81y, F Registration Date/Time: 01/05/2017 ORDER SHEET Weight: 72.1 kg (stated) Allergies: Penicillin GENERAL ORDERS: Chest 1V Urgent (16:54 01/05/2017 Gregory Kaminski) (Ack 17:02 LNations ER Tech1) (17:14 JBoardlesal R.N.) Cardiac Panel Stat (16:54 01/05/2017 Gregory Kaminski) (16:57 KWilliams R.N.) BNP Urgent (16:54 01/05/2017 Gregory Kaminski) (16:57 KWilliams R.N.) D-Dimer Urgent (16:54 01/05/2017 Gregory Kaminski) (16:57 KWilliams R.N.) UA-Culture if indicated Urgent (16:54 01/05/2017 Gregory Kaminski) (Ack 17:02 LNations ER Tech1) (17:24 MWinterer R.N.) EKG - ER Stat (16:54 01/05/2017 Gregory Kaminski) (16:55 MWinterer R.N.) MEDICATION ORDERS: Azithromycin PO 500 mg (NOW) (18:07 01/05/2017 Gregory Kaminski) (Ack 18:17 MWinterer R.N.) (18:33 MWinterer R.N.) NitroGLYCERIN Paste Topical 1 in. (NOW, to CW) (18:07 01/05/2017 Gregory Kaminski) (Ack 18:17 MWinterer R.N.) (18:34 MWinterer R.N.) Ativan PO 1 mg (HIGH ALERT MEDICATION, NOW) (21:14 01/05/2017 Gregory Kaminski) (21:18 HOShaughnessy R.N.) IV FLUIDS: IV Saline Lock (16:54 01/05/2017 Gregory Kaminski) (16:56 MWinterer R.N.) Lasix IV 40 mg (NOW) (18:07 01/05/2017 Gregoyr Kaminski) (Ack 18:17 MWinterer R.N.) (18:33 MWinterer R.N.) ORDER SHEET NOTES: [Electronically signed by Geovanny Ballesteros R.N. (21:36 01/05/2017)] [Electronically signed by Devon Hsieh Dr. (22:57 01/05/2017)] [Electronically locked/signed by Geovanny Ballesteros R.N. (21:36 01/05/2017)]
--- NOTE | 2017-01-05 22:57 | ED MED RECONCILIATION SUMMARY ---
Patient: ALEJADNRA DUNN Medication Reconciliation Report [facility] VisitID: [id number] [address] [place] [address] 81y, F Registration Date/Time: 01/05/2017 Weight: 72.1 kg Height/Length: 64 in. BMI: 27.3 ALLERGIES: Penicillin The patient's Home Medications are listed below: CONTINUE TAKING THE FOLLOWING MEDICATIONS: AmLODIPine Besylate Oral 10 mg Atorvastatin Calcium Oral 40 mg, at bedtime Carvedilol Oral (25 mg) 1 tablet, bid Hydrocodone-Acetaminophen Oral 5 mg, 4x a day Quinapril HCl Oral 40 mg, daily TraZODone HCl Oral 50-150mg at hs The source(s) of the original Home Medication information: patient The following Medications were given to the patient in the Emergency Department: Lasix [IVP] IVP 40 mg, administered: 01/05/2017 6:28:00 PM Azithromycin [PO] PO 500 mg, administered: 01/05/2017 6:33:00 PM NITROGLYCERIN PASTE [TOPICAL] Topical 1 in., administered: 01/05/2017 6:24:00 PM Ativan [PO] PO 1 mg, administered: 01/05/2017 9:18:00 PM The following Medications were prescribed to the patient: Lasix 40 mg: take 1 orally every 24 hours. Dispense fifteen (15). No refills. Substitution is permissible. -- Devon Hsieh Dr. Azithromycin take 1 orally every day for 4 days. Total course 4 days. No refills.(Loading dose given in the ED) -- Devon Hsieh Dr.
--- NOTE | 2017-01-05 22:57 | ED MAR SUMMARY ---
..... Medication Administration Record [facility] [address] [place] [address] Patient: ALEJANDRA DUNN Visit ID: [id number] 81y, F Weight: 72.1 kg Height/Length: 64 in BMI: 27.3 ALLERGIES: Penicillin Given 18:24 01/05/2017 Margret Younger RRamezNRamez Medication Administered: NITROGLYCERIN PASTE [TOPICAL], Dose: 1 in. Topical. Medication Ordered: NitroGLYCERIN Paste Topical 1 in. (NOW, to CW). Given 18:28 01/05/2017 Margret Younger R.N. Medication Administered: LASIX [IVP], Dose: 40 mg IVP over 3 minute(s), Site: #1 left AC. Medication Ordered: Lasix IV 40 mg (NOW). Given 18:33 01/05/2017 Margret Younger RRamezNRamez Medication Administered: AZITHROMYCIN [PO], Dose: 500 mg PO. Medication Ordered: Azithromycin PO 500 mg (NOW). Given 21:18 01/05/2017 Geovanny Ballesteros RRamezNRamez Medication Administered: ATIVAN [PO] (LORAZEPAM), Dose: 1 mg Tablets PO. Medication Ordered: Ativan PO 1 mg (HIGH ALERT MEDICATION, NOW).
--- NOTE | 2017-01-05 22:57 | ED DISCHARGE INSTRUCTIONS ---
Patient: ALEJANDRA DUNN General Instructions [facility] VisitID: [id number] [place] [address] 81y, F Registration Date/Time: 01/05/2017 Acute diastolic, congestive heart failure Bacterial pneumonia with hypoxemia. Empiric antibiotics given in the ED and prescribed. INSTRUCTIONS Your Current Medications: CONTINUE TAKING THE FOLLOWING MEDICATIONS: AmLODIPine Besylate Oral : 10 mg. Atorvastatin Calcium Oral : 40 mg at bedtime. Carvedilol Oral : Tablet 25 mg, 1 tablet bid. Hydrocodone-Acetaminophen Oral : 5 mg 4x a day, prn. Quinapril HCl Oral : 40 mg daily. TraZODone HCl Oral : 50-150mg at hs. Prescription Medications: Lasix 40 mg: take 1 orally every 24 hours. Dispense fifteen (15). No refills. Substitution is permissible. Azithromycin take 1 orally every day for 4 days. Total course 4 days. No refills. (Loading dose given in the ED) Follow-up: Follow up with your doctor tomorrow. Blood pressure screening was not performed during this visit because the patient has an active diagnosis of hypertension. ADDITIONAL INFORMATION Pneumonia (Adult) Pneumonia is an infection deep within the lung, in the small air sacs (alveoli). It may be due to a virus or bacteria and is usually treated with an antibiotic. Severe cases require treatment in the hospital. Milder cases can be treated at home. Symptoms usually start to improve during the first2 days of treatment. Home Care: Rest at home for the first 23 days or until you feel stronger. When resuming activity, dont let yourself become overly tired. Avoid exposure to cigarette smoke (yours or others). You may use acetaminophen (Tylenol) or ibuprofen (Motrin, Advil) to control fever or pain, unless another medicine was prescribed. [NOTE: If you have chronic liver or kidney disease or ever had a stomach ulcer or GI bleeding, talk with your doctor before using these medicines.] (Aspirin should never be used in anyone under 18 years of age who is ill with a fever. It may cause severe liver damage.) Your appetite may be poor so a light diet is fine. Keep well hydrated by drinking 68 glasses of fluids per day (water, sport drinks such as Gatorade, sodas without caffeine, juices, tea, soup, etc.). This will help loosen secretions in the lung, making it easier for you to cough up the phlegm (sputum). If you also have heart or kidney disease, check with your doctor before you drink extra amounts of fluids. Finish all antibiotic medicine prescribed, even if you are feeling better after a few days. Follow Up with your doctor in the next 23 days (or as advised) to be sure you are responding properly to the medicine. [NOTE: If you are age 65 or older, or if you have chronic lung disease (asthma, emphysema or COPD), we recommendthe pneumococcal vaccination and a yearlyinfluenzavaccination(flu-shot) every . Ask your doctor about this.] Get Prompt Medical Attention if any of the following occur: Not getting better within the first 48 hours of treatment Increasing shortness of breath or rapid breathing (over 25 breaths/minute) Coughing up blood or increasing chest pain with breathing Fever of 100.4F (38C) oral or higher, not better with fever medication Increasing weakness, dizziness or fainting Increasing thirst or dry mouth Sinus pain, headache or a stiff neck Chest pain not caused by coughing Heart Failure (Left Or Right Sided) The heart is a large muscle that pumps blood throughout the body. Blood carries oxygen to all the organs, muscles, and skin of your body. After the body takes the oxygen out of the blood, the blood returns to the heart. The right side of the heart collects that blood and pumps it to the lungs to receive fresh oxygen. This oxygen-rich blood from the lungs then returns to the left side of the heart where it is pumped back out to the rest of the body, starting the process all over. Heart Failure (HF) occurs when the heart muscle is weakened. This affects the pumping action of the heart. When the right side of the heart is weakened, it cant handle the blood it is receiving from the rest of the body. This blood returns to the heart through veins. When too much pressure builds up in the veins fluid leaks out into the tissues. Ledbetter then causes that fluid to spread to those parts of the body that are the lowest. Therefore, one of the first symptoms of HF include swelling in the feet and ankles. If the condition worsens, the swelling can even go up past the knees. When the left side of the heart is weakened, it cant handle the blood it is receiving from the lungs. Pressure then builds up in the veins of the lungs, causing fluid to leakinto the lung tissues. This may be referred to as congestive heart failure.This causes you to feel short of breath, weak, or dizzy. These symptoms are often worse with exertion, such as climbing stairs or walking up hills. Lying flat is uncomfortable and can make your breathing worse. This may make sleeping difficult and force you to useextra pillows to sleep well. This condition may not only affect the right side of the heart or only the left side. While it may have started on one side, it often affects both sides. Causes of heart failure Coronary artery disease Prior heart attack (also known as acute myocardial infarction, or AMI) High blood pressure Damaged heart valve Diabetes Obesity Cigarette smoking Alcohol abuse Treatment Heart failure is a chronic condition. There is no cure. The purpose of medical treatment is to improve the pumping action of the heart, and remove excess water from the body. A number of medications can help achieve this goal,improvesymptoms and prevent the heart from becoming weaker. Another major goal is to better treat the caues of heart failure, such as diabetes, high blood pressure, and your lifestyle. Home care Check your weight every day. A sudden increase in weight gain could mean worsening heart failure. Use the same scale every day Weigh yourself at the same time every day Make sure the scale is on the floor, not on a rug Keep a record of your weight every day, so your doctor can see it. If you are not given a log sheet for this, keep a separate journal for this purpose. Reduce your salt (sodium) intake. Avoid high-salt foods (olives, pickles, smoked meats, salted potato chips, etc.). Do not add salt to your food at the table and use only small amounts of salt when cooking. Follow your doctors recommendations about how much fluid intake is safe. Stop smoking. Reduce alcohol use. Lose weight if you are overweight. The excess weight adds a lot of stress on the workload of the heart. Stay active. Talk to your doctor about an exercise program that is safe for your heart. Keep your feet elevated to reduce swelling. Ask your doctor about support hose as a preventive treatment for daytime leg swelling. Besides taking your medicine as instructed, an important part of treatment includes lifestyle changes such as diet, physical activity, stopping smoking, and weight control. Improve your diet. Often in the hospital, people are given a "heart healthy diet." This includes more fresh foods, lower fat, less processed foots, and lower salt. Follow-up care Follow up with your doctor as directed by our staff. Make sure to keep any appointments that were made for you as this can help better control heart failure. If an X-ray was done, you will be notified of any new findings that may affect your care. Call 911 Call 911 if you: Become severely short of breath Feel lightheaded, or feel like you might pass out or faint Have chest pain or discomfort that is different than usual, the medicines your doctor told you to use for this do not help, or the pain lasts longer than 10 to 15 minutes Suddendly develop a rapid heart rate When to seek medical care Get prompt medical attention if you have any of the following signs of worsening heart failure: Sudden weight gain (3or more pounds in one day or5or more pounds in one week) Trouble breathing not related to being active New or increased swelling of your legs or ankles Swelling or pain in your abdomen Breathing trouble at night (waking up short of breath, needing more pillows to breathe) Frequent coughing that doesnt go away Feeling much more tired than usual Furosemide Oral tablet What is this medicine? FUROSEMIDE (fyoor [place] se mide) is a diuretic. It helps you make more urine and to lose salt and excess water from your body. This medicine is used to treat high blood pressure, and edema or swelling from heart, kidney, or liver disease. How should I use this medicine? Take this medicine by mouth with a glass of water. Follow the directions on the prescription label. You may take this medicine with or without food. If it upsets your stomach, take it with food or milk. Do not take your medicine more often than directed. Remember that you will need to pass more urine after taking this medicine. Do not take your medicine at a time of day that will cause you problems. Do not take at bedtime. Talk to your fitness trainer regarding the use of this medicine in children. While this drug may be prescribed for selected conditions, precautions do apply. What side effects may I notice from receiving this medicine? Side effects that you should report to your doctor or health wound care center consultant as soon as possible: blood in urine or stools dry mouth fever or chills hearing loss or ringing in the ears irregular heartbeat muscle pain or weakness, cramps skin rash stomach upset, pain, or nausea tingling or numbness in the hands or feet unusually weak or tired vomiting or diarrhea yellowing of the eyes or skin Side effects that usually do not require medical attention (report to your doctor or health wound care center consultant if they continue or are bothersome): headache loss of appetite unusual bleeding or bruising What may interact with this medicine? aspirin and aspirin-like medicines certain antibiotics chloral hydrate cisplatin cyclosporine digoxin diuretics laxatives lithium medicines for blood pressure medicines that relax muscles for surgery methotrexate NSAIDs, medicines for pain and inflammation like ibuprofen, naproxen, or indomethacin phenytoin steroid medicines like prednisone or cortisone sucralfate What if I miss a dose? If you miss a dose, take it as soon as you can. If it is almost time for your next dose, take only that dose. Do not take double or extra doses. Where should I keep my medicine? Keep out of the reach of children. Store at room temperature between 15 and 30 degrees C (59 and 86 degrees F). Protect from light. Throw away any unused medicine after the expiration date. What should I tell my health care provider before I take this medicine? They need to know if you have any of these conditions: abnormal blood electrolytes diarrhea or vomiting gout heart disease kidney disease, small amounts of urine, or difficulty passing urine liver disease an unusual or allergic reaction to furosemide, sulfa drugs, other medicines, foods, dyes, or preservatives or trying to get breast-feeding What should I watch for while using this medicine? Visit your doctor or health wound care center consultant for regular checks on your progress. Check your blood pressure regularly. Ask your doctor or health wound care center consultant what your blood pressure should be, and when you should contact him or her. If you are a diabetic, check your blood sugar as directed. You may need to be on a special diet while taking this medicine. Check with your doctor. Also, ask how many glasses of fluid you need to drink a day. You must not get dehydrated. You may get drowsy or dizzy. Do not drive, use machinery, or do anything that needs mental alertness until you know how this drug affects you. Do not stand or sit up quickly, especially if you are an older patient. This reduces the risk of dizzy or fainting spells. Alcohol can make you more drowsy and dizzy. Avoid alcoholic drinks. This medicine can make you more sensitive to the sun. Keep out of the sun. If you cannot avoid being in the sun, wear protective clothing and use sunscreen. Do not use sun lamps or tanning beds/booths. Azithromycin Oral tablet What is this medicine? AZITHROMYCIN (az nate HENRY sin) is a macrolide antibiotic. It is used to treat or prevent certain kinds of bacterial infections. It will not work for colds, flu, or other viral infections. How should I use this medicine? Take this medicine by mouth with a full glass of water. Follow the directions on the prescription label. The tablets can be taken with food or on an empty stomach. If the medicine upsets your stomach, take it with food. Take your medicine at regular intervals. Do not take your medicine more often than directed. Take all of your medicine as directed even if you think your are better. Do not skip doses or stop your medicine early. Talk to your fitness trainer regarding the use of this medicine in children. Special care may be needed. What side effects may I notice from receiving this medicine? Side effects that you should report to your doctor or health wound care center consultant as soon as possible: allergic reactions like skin rash, itching or hives, swelling of the face, lips, or tongue confusion, nightmares or hallucinations dark urine difficulty breathing hearing loss irregular heartbeat or chest pain pain or difficulty passing urine redness, blistering, peeling or loosening of the skin, including inside the mouth white patches or sores in the mouth yellowing of the eyes or skin Side effects that usually do not require medical attention (report to your doctor or health wound care center consultant if they continue or are bothersome): diarrhea dizziness, drowsiness headache stomach upset or vomiting tooth discoloration vaginal irritation What may interact with this medicine? Do not take this medicine with any of the following medications: lincomycin This medicine may also interact with the following medications: amiodarone antacids cyclosporine digoxin magnesium nelfinavir phenytoin warfarin What if I miss a dose? If you miss a dose, take it as soon as you can. If it is almost time for your next dose, take only that dose. Do not take double or extra doses. Where should I keep my medicine? Keep out of the reach of children. Store at room temperature between 15 and 30 degrees C (59 and 86 degrees F). Throw away any unused medicine after the expiration date. What should I tell my health care provider before I take this medicine? They need to know if you have any of these conditions: kidney disease liver disease irregular heartbeat or heart disease an unusual or allergic reaction to azithromycin, erythromycin, other macrolide antibiotics, foods, dyes, or preservatives or trying to get breast-feeding What should I watch for while using this medicine? Tell your doctor or health wound care center consultant if your symptoms do not improve. Do not treat diarrhea with over the counter products. Contact your doctor if you have diarrhea that lasts more than 2 days or if it is severe and watery. This medicine can make you more sensitive to the sun. Keep out of the sun. If you cannot avoid being in the sun, wear protective clothing and use sunscreen. Do not use sun lamps or tanning beds/booths. You have been given the following additional information: Pneumonia (Adult) Heart Failure, General Furosemide Oral tablet Azithromycin Oral tablet (Electronically signed by Devon Hsieh Dr. 01/05/2017 22:57)
--- NOTE | 2017-01-05 22:57 | ED MED RECONCILIATION SUMMARY ---
Patient: ALEJANDRA DUNN Medication Reconciliation Report [facility] VisitID: [id number] [address] [place] [address] 81y, F Registration Date/Time: 01/05/2017 Weight: 72.1 kg Height/Length: 64 in. BMI: 27.3 ALLERGIES: Penicillin The patient's Home Medications are listed below: CONTINUE TAKING THE FOLLOWING MEDICATIONS: AmLODIPine Besylate Oral 10 mg Atorvastatin Calcium Oral 40 mg, at bedtime Carvedilol Oral (25 mg) 1 tablet, bid Hydrocodone-Acetaminophen Oral 5 mg, 4x a day Quinapril HCl Oral 40 mg, daily TraZODone HCl Oral 50-150mg at hs The source(s) of the original Home Medication information: patient The following Medications were given to the patient in the Emergency Department: Lasix [IVP] IVP 40 mg, administered: 01/05/2017 6:28:00 PM Azithromycin [PO] PO 500 mg, administered: 01/05/2017 6:33:00 PM NITROGLYCERIN PASTE [TOPICAL] Topical 1 in., administered: 01/05/2017 6:24:00 PM Ativan [PO] PO 1 mg, administered: 01/05/2017 9:18:00 PM The following Medications were prescribed to the patient: Lasix 40 mg: take 1 orally every 24 hours. Dispense fifteen (15). No refills. Substitution is permissible. -- Devon Hsieh Dr. Azithromycin take 1 orally every day for 4 days. Total course 4 days. No refills.(Loading dose given in the ED) -- Devon Hsieh Dr.
--- NOTE | 2017-01-05 22:57 | ED MAR SUMMARY ---
..... Medication Administration Record [facility] [address] [place] [address] Patient: ALEJANDRA DUNN Visit ID: [id number] 81y, F Weight: 72.1 kg Height/Length: 64 in BMI: 27.3 ALLERGIES: Penicillin Given 18:24 01/05/2017 Margret Younger RRamezNRamez Medication Administered: NITROGLYCERIN PASTE [TOPICAL], Dose: 1 in. Topical. Medication Ordered: NitroGLYCERIN Paste Topical 1 in. (NOW, to CW). Given 18:28 01/05/2017 Margret Younger R.N. Medication Administered: LASIX [IVP], Dose: 40 mg IVP over 3 minute(s), Site: #1 left AC. Medication Ordered: Lasix IV 40 mg (NOW). Given 18:33 01/05/2017 Margret Younger RRamezNRamez Medication Administered: AZITHROMYCIN [PO], Dose: 500 mg PO. Medication Ordered: Azithromycin PO 500 mg (NOW). Given 21:18 01/05/2017 Geovanny Ballesteros RRamezNRamez Medication Administered: ATIVAN [PO] (LORAZEPAM), Dose: 1 mg Tablets PO. Medication Ordered: Ativan PO 1 mg (HIGH ALERT MEDICATION, NOW).
== END 2017-01-05 21:36 | disposition home or self-care (01) ==
LOC: ED SRH 16:37
DX: I50.31 Acute diastolic (congestive) heart failure (principal); J15.9 Unspecified bacterial pneumonia; R09.02 Hypoxemia; I11.0 Hypertensive heart disease with heart failure; Z79.899 Other long term (current) drug therapy; Z88.0 Allergy status to penicillin
CPT/HCPCS: 90004; 90100; 90616; 91320; 91556; 92610; 92720; 95059